=== PATIENT | female | born 1940 | race American Indian/Alaskan Native ===

== ENCOUNTER 2017-04-10 14:58 | Inpatient (IN) | payer MEDICARE ==
--- NOTE | 2017-04-10 15:11 | ED PDOC ---
Lower Extremity Pain/Injury Time Seen by Provider: 04/10/17 15:10 Chief Complaint (Nursing): Lower Extremity Problem/Injury Chief Complaint (Provider): knee pain History Per: Patient Additional Complaint(s): 77-year-old female presents to emergency department with moderate pain to left knee. Patient has had pain for several months and it is progressively worsening. She takes oxycodone daily for pain relief but this does not help. Patient denies recent fall or trauma. She is currently undergoing physical therapy for the knee but this is not helping. Past Medical History Reviewed: Historical Data, Nursing Documentation, Vital Signs Vital Signs: Last Vital Signs Temp 97.8 F 04/10/17 15:00 Pulse 84 04/10/17 15:00 Resp 16 04/10/17 15:00 BP 155/67 H 04/10/17 15:00 Pulse Ox 98 04/10/17 15:00 - Medical History PMH: HTN - Surgical History Other surgeries: hysterectomy, hemorroidectomy - Family History Family History: States: No Known Family Hx - Living Arrangements Living Arrangements: With Family - Social History Current smoker - smoking cessation education provided: No Alcohol: None Drugs: Denies - Home Medications Home Medications: Ambulatory Orders Medication Instructions Recorded Acetaminophen [Non-Aspirin Pain 325 mg PO Q4 PRN 04/10/17 Relief] Diclofenac Epolamine [Flector] 1.3 % TP Q12 04/10/17 Docusate [Colace] 200 mg PO HS 04/10/17 Fentanyl [Duragesic Patch] 12 mcg TD 04/10/17 Ferrous Sulfate [Feosol] 325 mg PO BID 04/10/17 Folic Acid 1 mg PO DAILY 04/10/17 Magnesium Hydroxide [Milk of 30 ml PO DAILY PRN 04/10/17 Magnesia] Methotrexate Sodium [Trexall] 10 mg PO QWK 04/10/17 Methotrexate [Methotrexate] 1 tab PO QWK 04/10/17 Olmesartan/Hydrochlorothiazide 1 tab PO DAILY 04/10/17 [Benicar Hct 25 mg-40 mg] Oxycodone HCl [Roxicodone] 15 mg PO Q4 PRN 04/10/17 Tramadol HCl [Ultram] 50 mg PO Q4 PRN 04/10/17 amLODIPine [Norvasc] 5 mg PO DAILY 04/10/17 - Allergies Allergies/Adverse Reactions: Allergies Allergy/AdvReac Type Severity Reaction Status Date / Time No Known Allergies Allergy Verified 04/10/17 15:06 Wells Criteria for PE - Wells Criteria for Pulmonary Embolism Clinical Signs and Symptoms of DVT: No P.E is #1 Diagnosis, or Equally Likely: No Heart Rate >100: No Immobilization at least 3 days;Surgery previous 4 weeks: No Previous, objectively diagnosed PE or DVT: No Hemoptysis: No Malignancy w/treatment within 6 months, or palliative: No Total Score: 0 Review of Systems ROS Statement: Except As Marked, All Systems Reviewed And Found Negative Constitutional: Negative for: Fever Cardiovascular: Negative for: Chest Pain Respiratory: Negative for: Cough, Shortness of Breath, SOB with Exertion Gastrointestinal: Negative for: Nausea, Vomiting Musculoskeletal: Positive for: Other (left knee pain) Physical Exam - Reviewed Nursing Documentation Reviewed: Yes Vital Signs Reviewed: Yes - Physical Exam Appears: Positive for: Well, Non-toxic, No Acute Distress Skin: Negative for: Rash Eye Exam: Positive for: Normal appearance Cardiovascular/Chest: Positive for: Regular Rate, Rhythm Respiratory: Positive for: Normal Breath Sounds. Negative for: Wheezing, Respiratory Distress Extremity: Positive for: Other (Moderate swelling and tenderness diffusely to left knee with decreased range of motion, no calf swelling or tenderness bilaterally, normal distal sensation to bilateral lower extremities) Neurologic/Psych: Positive for: Alert, Oriented - Laboratory Results Result Diagrams: 04/11/17 05:15 04/11/17 05:15 - ECG Interpretation Of ECG: Normal sinus rhythm 72 bpm with no acute findings, reviewed by PA and ED attending. O2 Sat by Pulse Oximetry: 98 Pulse Ox Interpretation: Normal - Other Rad CXR X-Ray: Interpreted by Me, Viewed By Me X-Ray Interpretation: no acute finding Left knee x-ray X-Ray: Read By Radiologist X-Ray Interpretation: see below CT scan of left knee X-Ray: Read By Radiologist X-Ray Interpretation: see below Medical Decision Making Medical Decision Makin77 year old with persistent pain to left knee Plan: CBC CMP CXR EKG PT/PTT Type and Screen IVF IV zofran IV dilaudid Admit to hospitalist, consult with Dr. Leon and Dr. Castro Hb 8.3, 2 units packed RBC's given, written consent obtained from patient. X-ray left knee: IMPRESSION: Advanced osteoarthritis. No fracture is appreciated. Degenerative lateral subluxation of the tibias appreciable. CT left knee: severe degenerative changes with no fx. Disposition - Clinical Impression Clinical Impression: Inability to ambulate due to knee, Knee pain, Anemia - Patient ED Disposition Is Patient to be Admitted: Yes - Disposition Disposition Time: 17:24 Condition: FAIR - Pt Status Changed To: Hospital Disposition Of: Inpatient - Admit Certification Admit to Inpatient:: After my assessment, the patient will require hospitalization for at least two midnights. This is because of the severity of symptoms shown, intensity of services needed, and/or the medical risk in this patient being treated as an outpatient. - POA Present On Arrival: None Results - Lab Results Lab Results: 04/10/17 04/10/17 04/10/17 16:20 16:20 16:20 WBC 5.4 RBC 2.92 L Hgb 8.3 L Hct 26.4 L MCV 90.3 MCH 28.5 MCHC 31.6 L RDW 19.4 H Plt Count 188 MPV 7.7 Neut % (Auto) 61.9 Lymph % (Auto) 22.1 [place] % (Auto) 13.1 H Eos % (Auto) 2.2 Baso % (Auto) 0.7 Neut # 3.3 Lymph # 1.2 [place] # 0.7 Eos # 0.1 Baso # 0.0 PT 12.5 INR 1.1 APTT 29.9 Sodium 135 Potassium 4.7 Chloride 100 Carbon Dioxide 24 Anion Gap 16 BUN 24 H Creatinine 1.4 H Est GFR ( Amer) 44 Est GFR (Non-Af Amer) 36 Random Glucose 100 Calcium 9.3 Total Bilirubin 0.3 AST 18 ALT 31 Alkaline Phosphatase 74 Total Protein 8.0 Albumin 3.9 Globulin 4.1 H Albumin/Globulin Ratio 1.0 Blood Type Antibody Screen BBK History Checked 04/10/17 16:20 WBC RBC Hgb Hct MCV MCH MCHC RDW Plt Count MPV Neut % (Auto) Lymph % (Auto) [place] % (Auto) Eos % (Auto) Baso % (Auto) Neut # Lymph # [place] # Eos # Baso # PT INR APTT Sodium Potassium Chloride Carbon Dioxide Anion Gap BUN Creatinine Est GFR ( Amer) Est GFR (Non-Af Amer) Random Glucose Calcium Total Bilirubin AST ALT Alkaline Phosphatase Total Protein Albumin Globulin Albumin/Globulin Ratio Blood Type A POSITIVE Antibody Screen Negative BBK History Checked No verified bt
[2017-04-10] MEDS ORDERED: Sodium Chloride 0.9% 1,000 ML IV STA (15:42)
[2017-04-10 16:24] LABS: BASO % 0.7 % (0.0-2.0); EOS # 0.1 K/uL (0.0-0.7); EOS % 2.2 % (0.0-4.0); HEMATOCRIT 26.4 % (34.0-47.0); LYMPH # 1.2 K/uL (1.0-4.3); LYMPH % 22.1 % (20.0-40.0); MEAN CELL VOLUME 90.3 fl (81.0-99.0); MEAN CORPUSCULAR HEMOGLOBIN 28.5 pg (27.0-31.0); MEAN CORPUSCULAR HGB CONC 31.6 g/dL (33.0-37.0); MEAN PLATELET VOLUME 7.7 fl (7.2-11.7); MONO # 0.7 K/uL (0.0-0.8); MONO % 13.1 % (0.0-10.0); NEUT # 3.3 K/uL (1.8-7.0); NEUT % 61.9 % (50.0-75.0); RED CELL DISTRIBUTION WIDTH 19.4 % (11.5-14.5); WHITE BLOOD COUNT 5.4 K/uL (4.8-10.8)
[2017-04-10 16:34] LABS: BILIRUBIN,TOTAL 0.3 mg/dl (0.2-1.3); CALCIUM 9.3 mg/dL (8.4-10.2); POTASSIUM 4.7 MMOL/L (3.6-5.0)
--- NOTE | 2017-04-10 16:55 | RAD ---
HISTORY: clearance COMPARISON: No prior. FINDINGS: LUNGS: No active pulmonary disease. PLEURA: No significant pleural effusion identified, no pneumothorax apparent. CARDIOVASCULAR: Patient rotated toward the right limiting evaluation of the cardiac size which is appears upper limits of normal at least. Aortic ectasis is accentuated. OSSEOUS STRUCTURES: No significant abnormalities. VISUALIZED UPPER ABDOMEN: Elevated left hemidiaphragm daily least in part due to gas distended stomach and the splenic flexure moderately. OTHER FINDINGS: None. IMPRESSION: No acute infiltrate or pleural effusion bilaterally.
[2017-04-10 17:06] LABS: PARTIAL THROMBOPLASTIN TIME 29.9 Seconds (25.6-37.1)
[2017-04-10] MEDS ORDERED: Oxycodone/Acetaminophen 5/325 mg Tab PO PRN (17:38)
--- NOTE | 2017-04-10 17:53 | CP.PCM.HP ---
History of Present Illness - History of Present Illness History of Present Illness: CC: left knee pain - for months acutely but arthritis for years, sent in to ED for transfusion prior to OR 77 yo F pmh sig for HTN, osteoarthritis, and RA, was at [facility] for severe knee pain, transferred to rehab and sent to Hospital for eval of pain and possible surgery kelli. Found to be anemic prior to OR. sent for Transfusion prior to OR. Patient complained of sever pain right and left knees for a while now (years) now both worse. Left though was 10/10 pain until given pain meds in ED. Currently 4-5/10 and is now comfortable. Barely able to walk or put any weight on left knee and now feels she is overcompensating on right knee and that one is also pain full. She clearly has difficulty walking and doing her tasks. She denies chest pain, sob, fever, chills, dysuria, weight loss, cough, nausea, vomiting. She got prbc recently at [place] as well. She is not sure why she is anemic. She did have stool that was negative for fecal occult at rehab ([facility] [place]). Recent UTI: completed cipro from04/06-04/09 PMH: Hypertension CKD Arthritis difficulty walking Anemia Constipation Rheumatoid arthritis PSH: Hysterectomy SH: no smoking no alcohol no drug use FH: no significant inherited diseases Allergies: NKDA PMD: Isabel Diaz @ rehab [facility] [place] Lives Alone: has family through out the [place] no one is close by except friends from restorationist Daughter Dari Estrada - [phone] is point of contact in case she is not able to make her decisions Full code - discussed. Meds: Tylenol prn pain Norvasc 5mg po daily Benicar /HCT 40/25mg po q daily Colace 100mg bid Fentanyl patch 12mcg/hr x 72 hrs Iron sulfate bid flector patch 1.3% q 12 hrs folic acid 1mg daily Methotrexate 12.5mg po q mondays MOM prn Oxycocone 15mg po q4 hrs prn pain tramadol 50mg po q4 prn mod pain Present on Admission - Present on Admission Any Indicators Present on Admission: No History of DVT/PE: No History of Uncontrolled Diabetes: No Urinary Catheter: No Decubitus Ulcer Present: No Review of Systems - Review of Systems All systems: reviewed and no additional remarkable complaints except - Constitutional Constitutional: absent: As Per HPI, Anorexia, Chills, Daytime Sleepiness, Excessive Sweating, Fatigue, Fever, Frequent Falls, Headache, Increased Appetite , Lethargy, Malaise, Night Sweats, Snoring, Sleep Apnea, Weight Gain, Weight Loss, Weakness, Other - EENT Eyes: absent: As Per HPI, Blind Spots, Blurred Vision, Change in Vision, Decreased Night Vision, Diplopia, Discharge, Dry Eye, Exophthalmos, Floaters, Irritation, Itchy Eyes, Loss of Peripheral Vision, Pain, Photophobia, Requires Corrective Lenses, Sees Flashes, Spots in Vision, Tunnel Vision, Other Visual Disturbances, Loss of Vision, Other Ears: absent: As Per HPI, Decreased Hearing, Ear Discharge, Ear Pain, Tinnitus, Abnormal Hearing, Disequilibrium, Dizziness, Other Nose/Mouth/Throat: absent: As Per HPI, Epistaxis, Nasal Congestion, Nasal Discharge, Nasal Obstruction, Nasal Trauma, Nose Pain, Post Nasal Drip, Sinus Pain, Sinus Pressure, Bleeding Gums, Change in Voice, Dental Pain, Dry Mouth, Dysphagia, Halitosis, Hoarsness, Lip Swelling, Mouth Lesions, Mouth Pain, Odynophagia, Sore Throat, Throat Swelling, Tongue Swelling, Facial Pain, Neck Pain, Neck Mass, Other - Breasts Breasts: absent: As Per HPI, Change in Shape, Mass, Pain, Nipple Discharge, Nipple Inversion, Skin Changes, Swelling, Other - Cardiovascular Cardiovascular: absent: As Per HPI, Acrocyanosis, Chest Pain, Chest Pain at Rest , Chest Pain with Activity, Claudication, Diaphoresis, Dyspnea, Dyspnea on Exertion, Edema, Irregular Heart Rhythm, Pain Radiating to Arm/Neck/Jaw, Leg Edema, Leg Ulcers, Lightheadedness, Orthopnea, Palpitations, Paroxysmal Nocturnal Dyspnea, Pedal Edema, Radiating Pain, Rapid Heart Rate, Slow Heart Rate, Syncope, Other - Respiratory Respiratory: absent: As Per HPI, Cough, Dyspnea, Hemoptysis, Dyspnea on Exertion , Wheezing, Snoring, Stridor, Pain on Inspiration, Chest Congestion, Excessive Mucous Production, Change in Mucous Color, Pain with Coughing, Other - Gastrointestinal Gastrointestinal: absent: As Per HPI, Abdominal Pain, Belching, Bloating, Change in Bowel Habits, Change in Stool Character, Coffee Ground Emesis, Constipation, Cramping, Diarrhea, Dyspepsia, Dysphagia, Early Satiety, Excessive Flatus, Fecal Incontinence, Heartburn, Hematemesis, Hematochezia, Loose Stools, Melena, Nausea, Odynophagia, Temesmus, Vomiting, Other - Genitourinary Genitourinary: absent: As Per HPI, Change in Urinary Stream, Difficulty Urinating, Dysuria, Flank Pain, Hematuria, Pyuria, Nocturia, Urinary Incontinence, Urinary Frequency, Urinary Hesitance, Urinary Urgency, Voiding Freq/Small Amts, Freq UTI, Hx Renal/Bladder Calculi, Hx /Renal Surgery, Bladder Distension, Other - Reproductive: Female Reproductive:Female: S/P Hysterectomy. absent: As Per HPI, Amenorrhea, Amenorrhea/ Control, Currently Menstual, Cycle <21 Days, Cycle >35 Days, Cycle Variable, Menses 1-7 Days, Menses >/= 8 Days, Menses Variable, Cycle > 4 Weeks Between, No Menses for 6 Months, Heavy Menses, Light Menses, Normal Menses , Spotting Between Cycles, Menopausal, Post Menopausal, Premenarche, Abnormal Vaginal Bleeding, Dysmenorrhea, Dyspareunia, Genital Lesions, Genital Pruritis, Pelvic Pain, Prolapse Symptoms, Sexual Dysfunction, Vaginal Discharge, Vaginal Dryness, Vaginal Odor, Vaginal Pruritis, Other - Menstruation Menstruation: S/P Hysterectomy, Post Menopausal. absent: As Per HPI, Amenorrhea , Amenorrhea/ Control, Currently Menstual, Cycle <21 Days, Cycle >35 Days, Cycle Variable, Menses 1-7 Days, Menses >/= 8 Days, Menses Variable, Cycle > 4 Weeks Between, No Menses for 6 Months, Heavy Menses, Light Menses, Normal Menses , Spotting Between Cycles, Menopausal, Premenarche, Abnormal Vaginal Bleeding, Dysmenorrhea, Other - Musculoskeletal Musculoskeletal: Deformity, Joint Swelling, Limited Range of Motion - Integumentary Integumentary: absent: As Per HPI, Acne, Alopecia, Bleeding Lesions, Change in Hair, Change in Nails, Change in Pigmentation, Changing Lesions, Dry Skin, Erythema, Furuncle, Hirsutism, Lesions, New Lesions, Non-Healing Lesions, Photosensitivity, Pruritus, Rash, Skin Pain, Skin Ulcer, Sores, Striae, Swelling , Unusual Bruising, Wounds, Jaundice, Other - Neurological Neurological: Abnormal Gait. absent: As Per HPI, Abnormal Hearing, Abnormal Movements, Abnormal Speech, Behavioral Changes, Burning Sensations, Confusion, Convulsions, Disequilibrium, Dizziness, Numbness, Focal Weakness, Frequent Falls , Headaches, Lack of Coordination, Loss of Vision, Memory Loss, Paresthesias, Radicular Pain, Restless Legs, Sensory Deficit, Syncope, Tingling, Tremor, Vertigo, Weakness, Other Visual Disturbances, Other - Psychiatric Psychiatric: absent: As Per HPI, Abnormal Sleep Pattern, Anhedonia, Anxiety, Auditory Hallucinations, Behavioral Changes, Change in Appetite, Change in Libido, Confusion, Depression, Difficulty Concentrating, Hallucinations, Homicidal Ideation, Hopelessness, Irritability, Memory Loss, Mood Swings, Panic Attacks, Paranoia, Suicidal Ideation, Visual Hallucinations, Tactile Hallucinations, Other - Endocrine Endocrine: absent: As Per HPI, Change in Body Appearance, Change in Libido, Cold Intolorance, Deepening of Voice, Excessive Sweating, Fatigue, Flushing, Heat Intolorance, Increase in Ring/Shoe/Hat Size, Palpitations, Polydipsia, Polyphagia, Polyuria, Other - Hematologic/Lymphatic Hematologic: As Per HPI, Other. absent: Easy Bleeding, Easy Bruising, Lymphadenopathy Additional comments: anemia Past Patient History - Infectious Disease Hx of Infectious Diseases: None - Past Social History Alcohol: None Drugs: Denies - CARDIAC Hx Hypertension: Yes - PSYCHIATRIC Hx Substance Use: No - SURGICAL HISTORY Hx Surgeries: Yes Hx Hysterectomy: Yes Other/Comment: Hemorroidectomy. - ANESTHESIA Hx Anesthesia: Yes Hx Anesthesia Reactions: No Meds Allergies/Adverse Reactions: Allergies Allergy/AdvReac Type Severity Reaction Status Date / Time No Known Allergies Allergy Verified 04/10/17 15:06 Physical Exam - Constitutional Appears: Well, No Acute Distress Additional comments: was in pain earlier - given pain meds per ED currently seems comfortable - Head Exam Head Exam: ATRAUMATIC, NORMAL INSPECTION, NORMOCEPHALIC - Eye Exam Eye Exam: EOMI, Normal appearance. absent: Scleral icterus Pupil Exam: NORMAL ACCOMODATION Additional comments: pallor - ENT Exam ENT Exam: Mucous Membranes Moist - Neck Exam Neck exam: Positive for: Normal Inspection - Respiratory Exam Respiratory Exam: Clear to Auscultation Bilateral, NORMAL BREATHING PATTERN. absent: Rales, Rhonchi, Wheezes - Cardiovascular Exam Cardiovascular Exam: REGULAR RHYTHM, +S1, +S2. absent: Systolic Murmur - GI/Abdominal Exam GI & Abdominal Exam: Normal Bowel Sounds, Soft. absent: Tenderness Additional comments: obese - Extremities Exam Extremities exam: Positive for: joint swelling, tenderness Additional comments: decrease rom of left knee pain at left knee pain right knee both knees swollen dec rom right knee - Back Exam Back exam: NORMAL INSPECTION - Neurological Exam Neurological exam: Alert, Oriented x3 - Psychiatric Exam Psychiatric exam: Normal Affect, Normal Mood - Skin Skin Exam: Normal Color Results - Vital Signs Recent Vital Signs: Last Vital Signs Temp 97.8 F 04/10/17 15:00 Pulse 84 04/10/17 15:00 Resp 16 04/10/17 15:00 BP 155/67 H 04/10/17 15:00 Pulse Ox 98 04/10/17 17:42 - Labs Result Diagrams: 04/10/17 16:20 04/10/17 16:20 Labs: Laboratory Results - last 24 hr 04/10/17 04/10/17 04/10/17 16:20 16:20 16:20 WBC 5.4 RBC 2.92 L Hgb 8.3 L Hct 26.4 L MCV 90.3 MCH 28.5 MCHC 31.6 L RDW 19.4 H Plt Count 188 MPV 7.7 Neut % (Auto) 61.9 Lymph % (Auto) 22.1 [place] % (Auto) 13.1 H Eos % (Auto) 2.2 Baso % (Auto) 0.7 Neut # 3.3 Lymph # 1.2 [place] # 0.7 Eos # 0.1 Baso # 0.0 PT INR APTT Sodium 135 Potassium 4.7 Chloride 100 Carbon Dioxide 24 Anion Gap 16 BUN 24 H Creatinine 1.4 H Est GFR ( Amer) 44 Est GFR (Non-Af Amer) 36 Random Glucose 100 Calcium 9.3 Total Bilirubin 0.3 AST 18 ALT 31 Alkaline Phosphatase 74 Total Protein 8.0 Albumin 3.9 Globulin 4.1 H Albumin/Globulin Ratio 1.0 Blood Type A POSITIVE Antibody Screen Negative BBK History Checked No verified bt 04/10/17 16:20 WBC RBC Hgb Hct MCV MCH MCHC RDW Plt Count MPV Neut % (Auto) Lymph % (Auto) [place] % (Auto) Eos % (Auto) Baso % (Auto) Neut # Lymph # [place] # Eos # Baso # PT 12.5 INR 1.1 APTT 29.9 Sodium Potassium Chloride Carbon Dioxide Anion Gap BUN Creatinine Est GFR ( Amer) Est GFR (Non-Af Amer) Random Glucose Calcium Total Bilirubin AST ALT Alkaline Phosphatase Total Protein Albumin Globulin Albumin/Globulin Ratio Blood Type Antibody Screen BBK History Checked - EKG Data EKG Interpreted by: Myself EKG shows normal: Sinus rhythm Assessment & Plan - Assessment and Plan (Free Text) Assessment: 77 yo female PMH of HTN, OsteoArthritis, Rheumatoid Arthritis, difficulty walking and anemia here for preop transfusion prior to OR. 1. Bilateral knee pain though left greater than right 2. difficulty walking due to knee pain 3. Osteoarthritis 4. Rheumatoid arthritis 5. Hypertension 6. Anemia Plan: resume home meds for hypertension EKG read by me: NSR non specific t wave abn, Left axis deviation Cardiac Clearance by Dr Gibson. fall risk plan [address] Noriega UA stat Monitor ckd diet low salt then NPO past midnight omlesartan not avail here thus started on losartan follow labs in am dvt proph tonight hep sc post surgical dvt proph per Dr. Noriega
--- NOTE | 2017-04-10 18:10 | CT ---
EXAM: CT Left Lower Extremity Without Intravenous Contrast, Knee EXAM DATE/TIME: 04/10/2017 5:23 PM CLINICAL HISTORY: 77 years old, female; Pain; Knee; Left; Additional info: Severe left knee pain TECHNIQUE: Axial computed tomography images of the left knee without intravenous contrast. All CT scans at this facility use one or more dose reduction techniques, viz.: automated exposure control; ma/kV adjustment per patient size (including targeted exams where dose is matched to indication; i.e. head); or iterative reconstruction technique. Coronal and sagittal reformatted images were created and reviewed. COMPARISON: There are no prior studies for comparison. FINDINGS: Bones/joints: Bony structures are diffusely osteopenic. There are degenerative changes at the knee. There is narrowing of all joint compartments. Narrowing is greatest in the medial joint compartment. There is subchondral sclerosis greatest in the medial aspect of the distal femur and proximal tibia. There are subchondral cysts greatest in the medial distal femur and proximal tibia. There is less severe narrowing of the patellofemoral joint space. There degenerative osteophytes arising from the femur and tibia. There is a moderately large joint effusion. There are no fractures. There is mild lateral subluxation of the tibia relative to the distal femur. Soft tissues: There is mild edema in superficial soft tissues. There is dystrophic calcification lateral to the distal femoral diametaphysis. IMPRESSION: Severe degenerative change in joint effusion, no fracture Additional findings as described above.
--- NOTE | 2017-04-10 18:48 | RAD ---
PROCEDURE: Left Knee Radiographs. HISTORY: Pain. COMPARISON: None. FINDINGS: BONES: No fracture or destructive bony lesion appreciated. JOINTS: Advanced osteoarthritis manifest by marked joint space narrowing an outside development in all 3 joint compartments. Subchondral cyst formation is appreciated in the medial and lateral femorotibial compartments. The patellofemoral compartment appears to be a least affected though significant osteoarthritis is still identified there. There is a limited lateral degenerative subluxation of the tibia appreciated. JOINT EFFUSION: Mild suprapatellar bursa effusion is suggested. OTHER FINDINGS: None. IMPRESSION: Advanced osteoarthritis. No fracture is appreciated. Degenerative lateral subluxation of the tibias appreciable.
[2017-04-11 06:17] LABS: HEMATOCRIT 27.5 % (34.0-47.0); MEAN CELL VOLUME 88.9 fl (81.0-99.0); MEAN CORPUSCULAR HEMOGLOBIN 29.3 pg (27.0-31.0); MEAN CORPUSCULAR HGB CONC 32.9 g/dL (33.0-37.0); RED CELL DISTRIBUTION WIDTH 17.4 % (11.5-14.5); WHITE BLOOD COUNT 4.5 K/uL (4.8-10.8)
[2017-04-11 06:41] LABS: POTASSIUM 4.3 MMOL/L (3.6-5.0)
--- NOTE | 2017-04-11 08:08 | CARD ---
APPROVED REPORT EKG Measurement Heart [id number] <Conclusion> Normal sinus rhythm Left axis deviation Abnormal ECG
[2017-04-11] MEDS ORDERED: MethylPREDNISolone Depo 40 mg/ml Inj ONE (08:56)
[2017-04-11] MEDS ORDERED: Lidocaine 1% Inj (20ml) ONE (08:56)
[2017-04-11] MEDS ORDERED: ceFAZolin IV 1 gm in Dextrose 2 GM/100 ML BAG IVPB ONE (08:56)
[2017-04-11] MEDS ORDERED: Absorbable Gelatin Sponge Size 100 ONE (08:57)
[2017-04-11] MEDS ORDERED: Bupivacaine 0.5% Inj(30mL) ONE (08:57)
[2017-04-11] MEDS ORDERED: Influenza Vaccine 18yr & older 0.5 ML/45 MCG SYR IM ONE (09:00)
[2017-04-11] MEDS ORDERED: HCTZ/Losartan 12.5/50 Tab PO SCH (09:00)
[2017-04-11] MEDS ORDERED: Pneumococcal 23-Valent Vaccine IM ONE (09:00)
[2017-04-11 09:06] LABS: RBC URINE 1 /hpf (0-3); URINE BACTERIA RARE (<OCC); URINE BILIRUBIN NEGATIVE (NEGATIVE); URINE BLOOD NEGATIVE (NEGATIVE); URINE COLOR STRAW (YELLOW); URINE GLUCOSE (UA) NEG (Normal); URINE KETONE NEGATIVE (NEGATIVE); URINE LEUKOCYTE ESTERASE SMALL Leu/uL (Negative); URINE PROTEIN NEGATIVE (NEGATIVE); URINE UROBILINOGEN 0.2-1.0 mg/dL (0.2-1.0); WBC URINE 1 /hpf (0-5)
--- NOTE | 2017-04-11 09:07 | CP.PCM.CON ---
History of Present Illness - History of Present Illness History of Present Illness: THE PATIENT IS A 77 YEAR OLD FEMALE ADMITTED WITH SEVERE LEFT KNEE PAIN AND WHO WILL UNDERGO A LEFT TKR TODAY BY DR VELEZ. SHE HAS A HISTORY OF RHEUMATOID ARTHRITIS AND HAS HAD BILATERAL KNEE PAIN FOR YEARS, MORE PRONOUNCED OF THE LEFT. SHE ALSO HAS A HISTORY OF HYPERTENSION, CKD AND ANEMIA. CARDIOLOGY WAS ASKED TO SEE HER PRE-OP AND FOLLOW HERE AFTERWARDS IN THE HOSPITAL. SHE DENIES ANY CHEST PAIN HISTORY OR CAD. Past Patient History - Infectious Disease Hx of Infectious Diseases: None - Past Medical History & Family History Past Medical History?: Yes - Past Social History Smoking Status: Never Smoked - CARDIAC Hx Hypertension: Yes - PULMONARY Hx Respiratory Disorders: No - NEUROLOGICAL Hx Neurological Disorder: No - HEENT Hx HEENT Problems: No - RENAL Hx Chronic Kidney Disease: Yes - ENDOCRINE/METABOLIC Hx Endocrine Disorders: No - HEMATOLOGICAL/ONCOLOGICAL Hx Blood Disorders: Yes Hx Anemia: Yes Hx Blood Transfusions: Yes - INTEGUMENTARY Hx Dermatological Problems: No - MUSCULOSKELETAL/RHEUMATOLOGICAL Hx Falls: No Hx Osteoarthritis: Yes Hx Rheumatoid Arthritis: Yes - GENITOURINARY/GYNECOLOGICAL Hx Genitourinary Disorders: No - PSYCHIATRIC Hx Substance Use: No - SURGICAL HISTORY Hx Surgeries: Yes Hx Hysterectomy: Yes Other/Comment: Hemorroidectomy. - ANESTHESIA Hx Anesthesia: Yes Hx Anesthesia Reactions: No Meds Allergies/Adverse Reactions: Allergies Allergy/AdvReac Type Severity Reaction Status Date / Time No Known Allergies Allergy Verified 04/10/17 15:06 - Medications Medications: Current Medications Acetaminophen (Tylenol 325mg Tab) 325 mg PO Q6 PRN PRN Reason: Pain, Mild (1-3) Acetaminophen (Tylenol 325mg Tab) 650 mg PO Q4 PRN PRN Reason: Pain, moderate (4-7) Amlodipine Besylate (Norvasc) 5 mg PO DAILY [facility] Last Admin: 04/11/17 08:31 Dose: Not Given Docusate Sodium (Colace) 100 mg PO BID [facility] Last Admin: 04/11/17 08:31 Dose: Not Given Ferrous Sulfate (Feosol) 325 mg PO DAILY [facility] Last Admin: 04/11/17 08:31 Dose: Not Given Folic Acid (Folic Acid) 1 mg PO DAILY [facility] Last Admin: 04/11/17 08:31 Dose: Not Given HCTZ/Losartan Potassium (Hyzaar 12.5 Mg-50 Mg) 1 tab PO DAILY [facility] Last Admin: 04/11/17 08:31 Dose: Not Given Ibuprofen (Motrin Tab) 400 mg PO Q6H PRN PRN Reason: Pain, Mild (1-3) Oxycodone/Acetaminophen (Percocet 5/325 Mg Tab) 1 tab PO Q4 PRN PRN Reason: Pain, moderate (4-7) Stop: 04/13/17 17:39 Last Admin: 04/11/17 01:36 Dose: 1 tab Tramadol HCl (Ultram) 50 mg PO Q4 PRN PRN Reason: Pain, moderate (4-7) Physical Exam - Respiratory Exam Respiratory Exam: Clear to Auscultation Bilateral - Cardiovascular Exam Cardiovascular Exam: REGULAR RHYTHM, +S1, +S2 - Extremities Exam Extremities exam: Positive for: pedal edema - Additional Findings Additional findings: EKG NSR, LAD CXR NAD H/H 02/16 Results - Vital Signs Recent Vital Signs: Last Vital Signs Temp 98.1 F 04/11/17 07:30 Pulse 70 04/11/17 07:30 Resp 18 04/11/17 07:30 BP 98/62 L 04/11/17 08:31 Pulse Ox 97 04/11/17 07:30 - Labs Result Diagrams: 04/11/17 05:15 04/11/17 05:15 Labs: Laboratory Results - last 24 hr 04/10/17 04/10/17 04/10/17 16:20 16:20 16:20 WBC 5.4 RBC 2.92 L Hgb 8.3 L Hct 26.4 L MCV 90.3 MCH 28.5 MCHC 31.6 L RDW 19.4 H Plt Count 188 MPV 7.7 Neut % (Auto) 61.9 Lymph % (Auto) 22.1 Iron % (Auto) 13.1 H Eos % (Auto) 2.2 Baso % (Auto) 0.7 Neut # 3.3 Lymph # 1.2 Iron # 0.7 Eos # 0.1 Baso # 0.0 PT INR APTT Sodium 135 Potassium 4.7 Chloride 100 Carbon Dioxide 24 Anion Gap 16 BUN 24 H Creatinine 1.4 H Est GFR ( Amer) 44 Est GFR (Non-Af Amer) 36 Random Glucose 100 Calcium 9.3 Total Bilirubin 0.3 AST 18 ALT 31 Alkaline Phosphatase 74 Total Protein 8.0 Albumin 3.9 Globulin 4.1 H Albumin/Globulin Ratio 1.0 Blood Type A POSITIVE Blood Type Confirm Antibody Screen Negative Crossmatch See Detail BBK History Checked No verified bt 04/10/17 04/10/17 04/11/17 16:20 18:51 05:15 WBC 4.5 L RBC 3.09 L Hgb 9.1 L Hct 27.5 L MCV 88.9 MCH 29.3 MCHC 32.9 L RDW 17.4 H Plt Count 168 MPV Neut % (Auto) Lymph % (Auto) Iron % (Auto) Eos % (Auto) Baso % (Auto) Neut # Lymph # Iron # Eos # Baso # PT 12.5 INR 1.1 APTT 29.9 Sodium Potassium Chloride Carbon Dioxide Anion Gap BUN Creatinine Est GFR ( Amer) Est GFR (Non-Af Amer) Random Glucose Calcium Total Bilirubin AST ALT Alkaline Phosphatase Total Protein Albumin Globulin Albumin/Globulin Ratio Blood Type Blood Type Confirm A POSITIVE Antibody Screen Crossmatch BBK History Checked 04/11/17 04/11/17 05:15 05:15 WBC RBC Hgb Hct MCV MCH MCHC RDW Plt Count MPV Neut % (Auto) Lymph % (Auto) Iron % (Auto) Eos % (Auto) Baso % (Auto) Neut # Lymph # Iron # Eos # Baso # PT 12.5 INR 1.1 APTT Sodium 136 Potassium 4.3 Chloride 105 Carbon Dioxide 24 Anion Gap 11 BUN 18 H Creatinine 1.2 Est GFR ( Amer) 53 Est GFR (Non-Af Amer) 44 Random Glucose 93 Calcium 9.0 Total Bilirubin AST ALT Alkaline Phosphatase Total Protein Albumin Globulin Albumin/Globulin Ratio Blood Type Blood Type Confirm Antibody Screen Crossmatch BBK History Checked Assessment & Plan - Assessment and Plan (Free Text) Assessment: RHEUMATOID ARTHRITIS WITH SEVERE LEFT KNEE PAIN HYPERTENSION CKD ANEMIA Plan: THE PATIENT IS CLEAR FOR SURGERY FROM THE CARDIAC VIEWPOINT
[2017-04-11] MEDS ORDERED: Etomidate 20 mg/10ml Inj IV ONE (09:14)
[2017-04-11] MEDS ORDERED: Succinylcholine 200 mg/10 ml Inj IV ONE (09:18)
[2017-04-11] MEDS ORDERED: Sevoflurane - Inhalation Anesthetic Liq (250 ml) ONE (09:24)
[2017-04-11] MEDS ORDERED: Lidocaine 2% MPF (5 ml) Inj ONE (10:04)
[2017-04-11] MEDS ORDERED: Bupivacaine HCl/Epi 0.5% 1:20000 30 ML SOL IJ ONE ×2 (10:04→15:28)
[2017-04-11] MEDS ORDERED: ePHEDrine 50 mg/ml Inj ONE (10:09)
--- NOTE | 2017-04-11 10:20 | CARD ---
APPROVED REPORT EXAM: Two-dimensional and M-mode echocardiogram with Doppler and color Doppler. Other Information Quality : GoodRhythm : NSR INDICATION Pre-Op 2D DIMENSIONS IVSd0.82 (0.7-1.1cm)LVDd4.70 (3.9-5.9cm) LVOT Diameter2.22 (1.8-2.4cm)PWd0.68 (0.7-1.1cm) IVSs0.98 (0.8-1.2cm)LVDs3.82 (2.5-4.0cm) FS (%) 18.7 %PWs0.77 (0.8-1.2cm) M-Mode DIMENSIONS Left Atrium (MM)3.59 (2.5-4.0cm)IVSd0.79 (0.7-1.1cm) Aortic Root3.38 (2.2-3.7cm)LVDd5.71 (4.0-5.6cm) Aortic Cusp Exc.1.91 (1.5-2.0cm)PWd1.00 (0.7-1.1cm) IVSs0.97 cmFS (%) 26 % LVDs4.21 (2.0-3.8cm)PWs1.26 cm Mitral Valve MV E Hpwsypai94.1cm/sMV DECEL [id number] A Qatfcdke867.8cm/s MV IIE17ffW/A ratio0.8MVA (PHT)3.52cm2 TDI Lateral E' Peak V14.50cm/sMedial E' Peak V6.68cm/sE/Lateral E'5.5 E/Medial E'12.0 Pulmonary Valve PV Peak Mkhopahi05.1cm/s Tricuspid Valve TR Peak Ebxqpwff338kd/sRAP [id number] Peak Gr.28mmHg UVAR37pkBv LEFT VENTRICLE The left ventricle is normal size. There is normal left ventricular wall thickness. Left ventricle systolic function is normal. The Ejection Fraction is 55-60%. There is normal LV segmental wall motion. Transmitral Doppler flow pattern is Grade I-abnormal relaxation pattern. RIGHT VENTRICLE The right ventricle is normal size. There is normal right ventricular wall thickness. The right ventricular systolic function is normal. ATRIA The left atrium size is normal. The right atrium size is normal. AORTIC VALVE The aortic valve is normal in structure. No aortic regurgitation is present. There is no aortic valvular stenosis. MITRAL VALVE The mitral valve is normal in structure. There is no evidence of mitral valve prolapse. There is no mitral valve stenosis. There is no mitral valve regurgitation noted. TRICUSPID VALVE The tricuspid valve is normal in structure. There is mild tricuspid regurgitation. Right ventricular systolic pressure is estimated at 38 mmHg. There is mild pulmonary hypertension. PULMONIC VALVE The pulmonary valve is normal in structure. There is no pulmonic valvular regurgitation. GREAT VESSELS The aortic root is normal in size. The IVC is dilated. The IVC collapses <50% with inspiration. PERICARDIAL EFFUSION The pericardium appears normal. <Conclusion> The left ventricle is normal size. There is normal left ventricular wall thickness. There is normal LV segmental wall motion. Left ventricle systolic function is normal. The Ejection Fraction is 55-60%. Transmitral Doppler flow pattern is Grade I-abnormal relaxation pattern. There is mild tricuspid regurgitation. There is mild pulmonary hypertension. The IVC is dilated. The IVC collapses <50% with inspiration.
[2017-04-11] MEDS ORDERED: Rocuronium 10 mg/ml (5 ml) ONE (10:41)
[2017-04-11] MEDS ORDERED: Phenylephrine 10 mg/ml Inj ONE (10:48)
[2017-04-11] MEDS ORDERED: Lactated Ringer's 1,000 ML IV ONE ×2 (11:05→12:30)
--- NOTE | 2017-04-11 14:05 | CP.PCM.PN ---
Subjective - Date & Time of Evaluation Date of Evaluation: 04/11/17 Time of Evaluation: 07:00 - Subjective Subjective: Ortho f/u Dr. Leon 77F with severe left knee DJD failed conservative mgmt and elected for TKR. Patient with chronic anemia, needed preoperative PRBC transfusion. Objective - Vital Signs/Intake and Output Vital Signs (last 24 hours): Temp Pulse Resp BP Pulse Ox 98.1 F 70 18 98/62 L 98 04/11/17 07:30 04/11/17 07:30 04/11/17 07:30 04/11/17 08:31 04/11/17 12:47 - Medications Medications: Current Medications Acetaminophen (Tylenol 325mg Tab) 325 mg PO Q6 PRN PRN Reason: Pain, Mild (1-3) Acetaminophen (Tylenol 325mg Tab) 650 mg PO Q4 PRN PRN Reason: Pain, moderate (4-7) Amlodipine Besylate (Norvasc) 5 mg PO DAILY [facility] Last Admin: 04/11/17 08:31 Dose: Not Given Docusate Sodium (Colace) 100 mg PO BID [facility] Last Admin: 04/11/17 08:31 Dose: Not Given Ferrous Sulfate (Feosol) 325 mg PO DAILY [facility] Last Admin: 04/11/17 08:31 Dose: Not Given Folic Acid (Folic Acid) 1 mg PO DAILY [facility] Last Admin: 04/11/17 08:31 Dose: Not Given HCTZ/Losartan Potassium (Hyzaar 12.5 Mg-50 Mg) 1 tab PO DAILY [facility] Last Admin: 04/11/17 08:31 Dose: Not Given Ibuprofen (Motrin Tab) 400 mg PO Q6H PRN PRN Reason: Pain, Mild (1-3) Oxycodone/Acetaminophen (Percocet 5/325 Mg Tab) 1 tab PO Q4 PRN PRN Reason: Pain, moderate (4-7) Stop: 04/13/17 17:39 Last Admin: 04/11/17 01:36 Dose: 1 tab Tramadol HCl (Ultram) 50 mg PO Q4 PRN PRN Reason: Pain, moderate (4-7) - Labs Labs: 04/11/17 05:15 04/11/17 05:15 PT 12.5 Seconds (9.8-13.1) 04/11/17 05:15 INR 1.1 (0.9-1.2) 04/11/17 05:15 APTT 29.9 Seconds (25.6-37.1) 04/10/17 16:20 - Extremities Exam Additional comments: LLE: +ROM ankle/toes, sensation itnact, calves soft NT neg homans +DP/PT pulses Assessment and Plan (1) Primary osteoarthritis of left knee Assessment & Plan: s/p 2 u pRBC T&C 2 units cardiology clearance appreciated NPO for OR for total knee replacement, preoperative transfusion indicated per Dr. Leon due to expected blood loss from procedure pt with neg stool occult blood in NH per chart d/w Dr. Leon, agrees with above Status: Acute Radiology Interpretation - Mailing Section Clerk Mailing Section Clerk:: Radiologist - Radiology Interpretation #2 Interpretation: Patient Name / ID : LI ANNE / [id number] Exam Date : 04/10/2017 17:36:27 ( Approved ) Study Comment : Sex / Age : F / 77Y Creator : Gus Mclaughlin MD Dictator : Gus Mclaughlin MD Bridal Gown Fitter : Classroom Paraprofessional : Gus Mclaughlin MD Approver2 : Report Date : 04/10/2017 18:46:41 My Comment : PROCEDURE: Left Knee Radiographs. HISTORY: Pain. COMPARISON: None. FINDINGS: BONES: No fracture or destructive bony lesion appreciated. JOINTS: Advanced osteoarthritis manifest by marked joint space narrowing an outside development in all 3 joint compartments. Subchondral cyst formation is appreciated in the medial and lateral femorotibial compartments. The patellofemoral compartment appears to be a least affected though significant osteoarthritis is still identified there. There is a limited lateral degenerative subluxation of the tibia appreciated. JOINT EFFUSION: Mild suprapatellar bursa effusion is suggested. OTHER FINDINGS: None. IMPRESSION: Advanced osteoarthritis. No fracture is appreciated. Degenerative lateral subluxation of the tibias appreciable.
[2017-04-11] MEDS ORDERED: Sodium Chloride 0.9% 1,000 ML IV ONE ×3 (14:20→17:35)
--- NOTE | 2017-04-11 14:32 | PCM.ANESB3 ---
Femoral Nerve Block - Femoral Nerve Block Date of Procedure: 04/11/17 Anesthesiologist: Teodoro Haynes Pre-Procedure Diagnosis: Osteo-arthritis,left Post-Procedure Diagnosis: Osteo-arthritis,left Procedure Performed: Femoral Nerve Block Left - Procedure Femoral Nerve Block: The procedure was explained to the patient that it is for the post-operative pain management. Consent was obtained after a thorough discussion with the patient regarding the benefits and possible complications of local anesthetic block of the femoral nerve at the inguinal crease area. The patient was brought to the operating room and standard monitors were applied. Time-out was held with the circulating nurse to confirm the correct surgery and the appropriate block. After applying oxygen by nasal cannula and administering general anesthesia patient was placed in supine position with fully extended lower extremities and the groin exposed. The femoral artery was then carefully palpated. The ultrasound transducer was then applied to this area in the transverse plane and the femoral nerve was visualized lateral to the femoral artery and underneath the fascia iliaca. After thorough identification, the inguinal crease area was prepped with Betadine solution three times and 1 % Lidocaine was injected subcutaneously for topical anesthesia. At this point, a #22 gauge Stimuplex 2-inch needle was inserted immediately lateral to the femoral artery pulse at the inguinal crease and advanced perpendicularly. The needle was inserted to the ultrasound transducer in-plane towards the femoral nerve in a lyvdbnu-mo-[id number] direction. Needle advancement was performed carefully under direct ultrasound visualization. Nerve stimulator was used and twitch of the quadriceps muscle was obtained at current of _.4____ MA. After negative aspiration, _10____cc of __2___% ___lidocaine _was injected and this was followed with _10 cc of _.5 % ___ bupivacaine . Under ultrasound guidance the local anesthetics were observed spreading below fascia iliaca and around the femoral nerve. The needle was removed intact and sterile dressing was applied. The patient had stable vital signs, was conscious and in no apparent distress. The patient tolerated the femoral nerve block well with stable vital signs and was prepared for subsequent surgery.
[2017-04-11] MEDS ORDERED: HYDROmorphone 0.5 mg/0.5 ml ISec IVP PRN (14:42)
--- NOTE | 2017-04-11 14:45 | PCM.ANESB2 ---
Popliteal Nerve Block - Popliteal Nerve Block Date of Procedure: 04/11/17 Anesthesiologist: Teodoro Haynes M.D. Pre-Procedure Diagnosis: Osteoarthritis, left knee Post-Procedure Diagnosis: Osteo-arthritis,left knee Procedure Performed: Popliteal Nerve Block Left - Procedure Popliteal Nerve Block: This procedure was explained to the patient that it is for post-operative pain management. Consent was obtained after a thorough discussion with the patient regarding the benefits and possible complications of local anesthetic block of the sciatic nerve at the popliteal level. The patient was brought to the operating room and standard monitors are applied. Time-out was held with the circulating nurse to confirm the correct surgery and the appropriate block. After applying oxygen by nasal cannula and administering general anesthesia , patient's operative leg was gently raised and supported and the groove in between the biceps femoris and vastus lateralis muscles was carefully palpated. The skin approximately 8cm above the popliteal crease was then marked. The ultrasound transducer was then applied to the posterior thigh approximately 8cm above the popliteal crease in the transverse plane and the sciatic nerve before its division was visualized lateral to the popliteal artery and in between the bicep femoris and semimembranosus/semitendinosus muscles. After identification, the lateral portion of the thigh was prepped with Betadine solution three times and Lidocaine 1% was injected subcutaneously for topical anesthesia. At this point, a # 21 gauge Stimuplex insulated 4 inch needle was inserted into pre-marked area and advanced in a perpendicular direction. The needle was inserted above the ultrasound transducer in-plane towards the sciatic nerve in a odwjcif-mr-qimcxw direction. Needle advancement was performed carefully under direct ultrasound visualization. Nerve stimulator was used and dorsiflexion of the _left____ foot was elicited at a current of __.4___ MA. After repeated negative aspiration, __10___cc of _.5____ % _bupivacaine was injected surrounding sciatic nerve . The needle was removed intact and sterile dressing was applied. The patient tolerated the popliteal nerve block well with stable vital signs and was subsequently prepared for the surgery.
[2017-04-11] MEDS ORDERED: Oxycodone/Acetaminophen 5/325 mg Tab PO PRN (14:48)
--- NOTE | 2017-04-11 14:56 | PCM.SURG1 ---
Surgeon's Initial Post Op Note - Surgeon's Notes Surgeon: Edward Gifts Officer: KIRA Gonsalez/ 2nd assist Vaibhav Parry Type of Anesthesia: General Endo Anesthesia Administered By: Dr Teodoro Haynes Pre-Operative Diagnosis: Tricompartmental O/A L Knee. tricopartmental synovitis Operative Findings: severe tricompartmental osteoarthritis. severe tricompartmental synovitis. posterior capsular contracture. lateral patella contracture Post-Operative Diagnosis: as above Operation Performed: L TKR. posterior capsular release. lateral patella release. anterior and posterior synovectomy. computer navigation Specimen/Specimens Removed: synovium/cartilage/bone Estimated Blood Loss: EBL {In ML}: 100 Blood Products Given: N/A Drains Used: No Drains Post-Op Condition: Good Date of Surgery/Procedure: 04/11/17 Time of Surgery/Procedure: 11:25 (time in room/aneatsheisa [id number] timke 10: 03)
[2017-04-11] MEDS: HYDROmorphone 0.5 mg/0.5 ml ISec IVP PRN ×3 (15:06→15:50)
--- NOTE | 2017-04-11 15:59 | RAD ---
PROCEDURE: Left Knee Radiographs. Left knee dated 04/11/2017 AP and views of the and cross-table lateral view of the left knee performed. HISTORY: Status post TKA COMPARISON: Comparison made with prior study 04/10/2017 FINDINGS: The current study reveals interval left total knee arthroplasty. Hardware appears intact. There is satisfactory alignment. . Expected surrounding postoperative changes within the soft tissues including swelling/ edema subcutaneous air and in situ drainage catheters. Overlying skin closure vinicio are also present. IMPRESSION: Status post left total knee arthroplasty. Satisfactory alignment. Surrounding expected/postoperative changes
--- NOTE | 2017-04-11 16:18 | PCM.ANES ---
Anesthesia Emergent Intubation - Diagnosis Working Diagnosis:: Status post left total knee replacement
--- NOTE | 2017-04-11 16:27 | CP.PCM.PN ---
Subjective - Date & Time of Evaluation Date of Evaluation: 04/11/17 Time of Evaluation: 16:00 - Subjective Subjective: Patient was complaining of pain at the lateral side of the operative site, the femoral lateral cutaneus nerve was block under ultrasound guidance using 20ml. .25% bupivacane. Patint has stable vital signs. Objective - Vital Signs/Intake and Output Vital Signs (last 24 hours): Temp Pulse Resp BP Pulse Ox 98.1 F 70 18 98/62 L 98 04/11/17 07:30 04/11/17 07:30 04/11/17 07:30 04/11/17 08:31 04/11/17 12:47 Intake and Output: 04/11/17 04/11/17 06:59 18:59 Intake Total 2700 Balance 2700 - Medications Medications: Current Medications Acetaminophen (Tylenol 325mg Tab) 325 mg PO Q6 PRN PRN Reason: Pain, Mild (1-3) Acetaminophen (Tylenol 325mg Tab) 650 mg PO Q4 PRN PRN Reason: Pain, moderate (4-7) Amlodipine Besylate (Norvasc) 5 mg PO DAILY [facility] Last Admin: 04/11/17 08:31 Dose: Not Given Aspirin (Ecotrin) 81 mg PO BID [facility] Docusate Sodium (Colace) 100 mg PO BID [facility] Last Admin: 04/11/17 08:31 Dose: Not Given Ferrous Sulfate (Feosol) 325 mg PO DAILY [facility] Last Admin: 04/11/17 08:31 Dose: Not Given Folic Acid (Folic Acid) 1 mg PO DAILY [facility] Last Admin: 04/11/17 08:31 Dose: Not Given HCTZ/Losartan Potassium (Hyzaar 12.5 Mg-50 Mg) 1 tab PO DAILY [facility] Last Admin: 04/11/17 08:31 Dose: Not Given Hydromorphone HCl (Dilaudid) 0.5 mg IVP Q15M PRN PRN Reason: Pain, moderate (4-7) Stop: 04/12/17 14:25 Hydromorphone HCl (Dilaudid) 0.5 mg IVP Q4 PRN PRN Reason: Pain, severe (8-10) Sodium Chloride (Sodium Chloride 0.9%) 1,000 mls @ 100 mls/hr IV .Q10H [facility] Cefazolin Sodium/Dextrose (Ancef Iv 2 Gm Duplex) 2 gm in 50 mls @ 50 mls/hr IVPB Q8 RASHAD PRN Reason: Protocol Stop: 04/12/17 01:59 Ibuprofen (Motrin Tab) 400 mg PO Q6H PRN PRN Reason: Pain, Mild (1-3) Oxycodone/Acetaminophen (Percocet 5/325 Mg Tab) 2 tab PO Q4 PRN PRN Reason: Pain, moderate (4-7) Stop: 04/14/17 14:43 Oxycodone/Acetaminophen (Percocet 5/325 Mg Tab) 1 tab PO Q4 PRN PRN Reason: Pain, Mild (1-3) Stop: 04/13/17 17:39 Tramadol HCl (Ultram) 50 mg PO Q4 PRN PRN Reason: Pain, moderate (4-7) - Labs Labs: 04/11/17 05:15 04/11/17 05:15 PT 12.5 Seconds (9.8-13.1) 04/11/17 05:15 INR 1.1 (0.9-1.2) 04/11/17 05:15 APTT 29.9 Seconds (25.6-37.1) 04/10/17 16:20
--- NOTE | 2017-04-11 17:21 | CP.PCM.PN ---
Subjective - Date & Time of Evaluation Date of Evaluation: 04/11/17 Time of Evaluation: 17:15 - Subjective Subjective: Pt seen in PACU post op- s/p Left TKR Pt doing well, she is awake , alert some post op pain thirsty and asking for cold water denies CP no SOB no fever Pt has a Hemovac inplace with minimal blood Objective - Vital Signs/Intake and Output Vital Signs (last 24 hours): Temp Pulse Resp BP Pulse Ox 95.8 F L 95 H 17 134/90 100 04/11/17 14:20 04/11/17 14:20 04/11/17 14:20 04/11/17 14:20 04/11/17 14:20 Intake and Output: 04/11/17 04/11/17 06:59 18:59 Intake Total 2700 Balance 2700 - Medications Medications: Current Medications Acetaminophen (Tylenol 325mg Tab) 325 mg PO Q6 PRN PRN Reason: Pain, Mild (1-3) Acetaminophen (Tylenol 325mg Tab) 650 mg PO Q4 PRN PRN Reason: Pain, moderate (4-7) Amlodipine Besylate (Norvasc) 5 mg PO DAILY [facility] Last Admin: 04/11/17 08:31 Dose: Not Given Aspirin (Ecotrin) 81 mg PO BID [facility] Docusate Sodium (Colace) 100 mg PO BID [facility] Last Admin: 04/11/17 08:31 Dose: Not Given Ferrous Sulfate (Feosol) 325 mg PO DAILY [facility] Last Admin: 04/11/17 08:31 Dose: Not Given Folic Acid (Folic Acid) 1 mg PO DAILY [facility] Last Admin: 04/11/17 08:31 Dose: Not Given HCTZ/Losartan Potassium (Hyzaar 12.5 Mg-50 Mg) 1 tab PO DAILY [facility] Last Admin: 04/11/17 08:31 Dose: Not Given Hydromorphone HCl (Dilaudid) 0.5 mg IVP Q15M PRN PRN Reason: Pain, moderate (4-7) Stop: 04/12/17 14:25 Hydromorphone HCl (Dilaudid) 0.5 mg IVP Q4 PRN PRN Reason: Pain, severe (8-10) Hydromorphone HCl (Dilaudid 0.2 Mg/Ml Dowel Maker) 0 mg IV PRN PRN; Protocol PRN Reason: Pain, moderate (4-7) Sodium Chloride (Sodium Chloride 0.9%) 1,000 mls @ 100 mls/hr IV .Q10H RASHAD Cefazolin Sodium/Dextrose (Ancef Iv 2 Gm Duplex) 2 gm in 50 mls @ 50 mls/hr IVPB Q8 RASHAD PRN Reason: Protocol Stop: 04/12/17 01:59 Ibuprofen (Motrin Tab) 400 mg PO Q6H PRN PRN Reason: Pain, Mild (1-3) Oxycodone/Acetaminophen (Percocet 5/325 Mg Tab) 2 tab PO Q4 PRN PRN Reason: Pain, moderate (4-7) Stop: 04/14/17 14:43 Oxycodone/Acetaminophen (Percocet 5/325 Mg Tab) 1 tab PO Q4 PRN PRN Reason: Pain, Mild (1-3) Stop: 04/13/17 17:39 Tramadol HCl (Ultram) 50 mg PO Q4 PRN PRN Reason: Pain, moderate (4-7) - Labs Labs: 04/11/17 05:15 04/11/17 05:15 PT 12.5 Seconds (9.8-13.1) 04/11/17 05:15 INR 1.1 (0.9-1.2) 04/11/17 05:15 APTT 29.9 Seconds (25.6-37.1) 04/10/17 16:20 - Constitutional Appears: Non-toxic, No Acute Distress - Head Exam Head Exam: NORMAL INSPECTION, NORMOCEPHALIC - Eye Exam Eye Exam: EOMI, Normal appearance Pupil Exam: NORMAL ACCOMODATION - ENT Exam ENT Exam: Mucous Membranes Dry, Normal External Ear Exam - Neck Exam Neck Exam: Full ROM. absent: Meningismus - Respiratory Exam Respiratory Exam: NORMAL BREATHING PATTERN. absent: Wheezes, Respiratory Distress - Cardiovascular Exam Cardiovascular Exam: REGULAR RHYTHM, +S1, +S2 - GI/Abdominal Exam GI & Abdominal Exam: Soft, Normal Bowel Sounds. absent: Tenderness - Extremities Exam Extremities Exam: Normal Capillary Refill (Left lower extremity with dressing, Hemovac in place) - Back Exam Back Exam: absent: CVA tenderness (L), CVA tenderness (R) - Neurological Exam Neurological Exam: Awake, Oriented x3 - Psychiatric Exam Psychiatric exam: Flat Affect - Skin Skin Exam: Dry, Normal Color, Warm Assessment and Plan (1) Primary osteoarthritis of left knee Status: Chronic (2) Rheumatoid arthritis Status: Chronic (3) Status post total knee replacement, left Status: Acute (4) Anemia Status: Chronic (5) HTN (hypertension) Status: Chronic (6) DVT prophylaxis Status: Acute - Assessment and Plan (Free Text) Assessment: 77 y/o lady with hx of OA, RA, HTN, presented in the ED because of severe left knee pain. Ortho consulted. CT of the knee showed severe OA. Noted to be anemic 8.1 - hx of chronic anemia - transfused 2 units PRBC pre op . Pt underwent Left TKR. (1) Primary osteoarthritis of left knee Status: Chronic Ortho consulted - DR Leon s/p Left TKR Pain mgt PT/OT consult DVT proph Received Ancef , will give 2 more doses Incentive spirometry (2) Rheumatoid arthritis Status: Chronic as (3) Status post total knee replacement, left Status: Acute as above (1) (4) Anemia, chronic Status: Chronic transfused 2 units pre op monitor CBC (5) HTN (hypertension) Status: Chronic cont Norvasc Hold HCTZ for now (6) DVT prophylaxis Status: Acute ASA 81 mg bid
[2017-04-11] MEDS: Sodium Chloride 0.9% 1,000 ML IV SCH (18:24)
[2017-04-11] MEDS: ceFAZolin IV 2 gm in Dextrose 2 GM/50 ML BAG IVPB SCH (18:28)
[2017-04-11] MEDS ORDERED: Sodium Chloride 0.9% 250 ML IV SCH (21:45)
--- NOTE | 2017-04-12 00:09 | PCM.RRT ---
MOTORCYCLE DESIGNER Nurse Assessment - Situation MOTORCYCLE DESIGNER Responder Arrival Time: 11:30 Location: 4th floor Room Number: 401/1 MOTORCYCLE DESIGNER Reason for Call: Respiratory Distress MOTORCYCLE DESIGNER Called By: RN - IV IV Inserted during MOTORCYCLE DESIGNER?: No - Respiratory Oxygen Delivery Method: Nasal Cannula Received Nebulizer Treatments: No Was the Patient Ventilated with Bag/Mask 100% O2?: No Secretions Suctioned?: No Was the Patient Intubated?: No I.Reason for MOTORCYCLE DESIGNER - A) Acute Change in Patient: (Select all that apply): Staff member or family is worried about patient (SOB ) Subjective: MOTORCYCLE DESIGNER was called for 77 y/o F, s/p left TKR, with PMH of HTN, CKD, Osteoarthritis and RA due to SOB and irregular breathing pattern. Upon arrival, patient was AAO and NAD. Stable VS: BP 116/69, O2 sat 94 % on 2 L NC. Patient denies any palpitations, chest pain, dizziness or breathing difficulty. EKG and CXR ordered , EKG shows Sinus Tachy (no acute change from previous EKG), will follow up CXR. Rec': Consider PO Lasix. MOTORCYCLE DESIGNER was ended and patient remains stable. Case discussed with Dr. Wiggins PGY2 and Dr. Pan --- Alexy Palmer, PGY-1 - Neurological Status (Select all that apply): Alert, Responsive, Oriented, Follows Commands - Respiratory Oxygen Delivery Method: Nasal Cannula @L/min (2L) - Constitutional Appears: Non-toxic, No Acute Distress - Head Head Exam: ATRAUMATIC, NORMAL INSPECTION, NORMOCEPHALIC - Eyes Eye Exam: Normal appearance - Respiratory Exam Respiratory Exam: Clear to Ausculation Bilateral - Cardiovascular Exam Cardiovascular Exam: REGULAR RHYTHM - GI/Abdominal Exam GI & Abdominal Exam: Soft - Neurological Exam Neurological Exam: Alert, Awake, Oriented x3 - Extremities Exam Additional comments: LLE in brace s/p surgery, drain with some bloody drainage
[2017-04-12] MEDS: Oxycodone/Acetaminophen 5/325 mg Tab PO PRN (00:23)
[2017-04-12 00:26] LABS: HEMATOCRIT 29.6 % (34.0-47.0); MEAN CELL VOLUME 89.7 fl (81.0-99.0); MEAN CORPUSCULAR HEMOGLOBIN 29.5 pg (27.0-31.0); MEAN CORPUSCULAR HGB CONC 32.8 g/dL (33.0-37.0); RED CELL DISTRIBUTION WIDTH 16.9 % (11.5-14.5); WHITE BLOOD COUNT 10.2 K/uL (4.8-10.8)
[2017-04-12] MEDS: Sodium Chloride 0.9% 1,000 ML IV SCH ×3 (01:08→21:38)
[2017-04-12] MEDS: ceFAZolin IV 2 gm in Dextrose 2 GM/50 ML BAG IVPB SCH (01:08)
[2017-04-12 06:12] LABS: HEMATOCRIT 28.5 % (34.0-47.0); MEAN CELL VOLUME 89.6 fl (81.0-99.0); MEAN CORPUSCULAR HEMOGLOBIN 29.8 pg (27.0-31.0); MEAN CORPUSCULAR HGB CONC 33.2 g/dL (33.0-37.0); WHITE BLOOD COUNT 10.8 K/uL (4.8-10.8)
[2017-04-12 06:21] LABS: CALCIUM 8.2 mg/dL (8.4-10.2); POTASSIUM 4.3 MMOL/L (3.6-5.0)
--- NOTE | 2017-04-12 07:50 | CP.PCM.PN ---
Subjective - Date & Time of Evaluation Date of Evaluation: 04/12/17 Time of Evaluation: 07:48 - Subjective Subjective: Patient states she is in a lot of pain in her knee. She is asking for pain medication and is in obvious physical discomfort. PROCESS CONTROL OPERATOR noted. Objective - Vital Signs/Intake and Output Vital Signs (last 24 hours): Temp Pulse Resp BP Pulse Ox 99.8 F H 97 H 20 102/68 100 04/12/17 05:00 04/12/17 05:00 04/12/17 05:00 04/12/17 05:00 04/12/17 05:00 Intake and Output: 04/12/17 04/12/17 06:59 18:59 Intake Total 990 Output Total 550 Balance 440 - Medications Medications: Current Medications Acetaminophen (Tylenol 325mg Tab) 325 mg PO Q6 PRN PRN Reason: Pain, Mild (1-3) Acetaminophen (Tylenol 325mg Tab) 650 mg PO Q4 PRN PRN Reason: Pain, moderate (4-7) Last Admin: 04/11/17 19:16 Dose: 650 mg Amlodipine Besylate (Norvasc) 5 mg PO DAILY [facility] Last Admin: 04/11/17 08:31 Dose: Not Given Aspirin (Ecotrin) 81 mg PO BID [facility] Docusate Sodium (Colace) 100 mg PO BID [facility] Last Admin: 04/11/17 18:35 Dose: 100 mg Ferrous Sulfate (Feosol) 325 mg PO DAILY [facility] Last Admin: 04/11/17 08:31 Dose: Not Given Folic Acid (Folic Acid) 1 mg PO DAILY [facility] Last Admin: 04/11/17 08:31 Dose: Not Given Hydromorphone HCl (Dilaudid 0.2 Mg/Ml Clothes Designer) 0 mg IV PRN PRN; Protocol PRN Reason: Pain, moderate (4-7) Hydromorphone HCl (Dilaudid) 0.5 mg IVP Q15M PRN PRN Reason: Pain, moderate (4-7) Stop: 04/12/17 14:25 Hydromorphone HCl (Dilaudid) 0.5 mg IVP Q4 PRN PRN Reason: Pain, severe (8-10) Last Admin: 04/12/17 05:02 Dose: 0.5 mg Sodium Chloride (Sodium Chloride 0.9%) 1,000 mls @ 100 mls/hr IV .Q10H RASHAD Last Admin: 04/12/17 01:08 Dose: 100 mls/hr Ibuprofen (Motrin Tab) 400 mg PO Q6H PRN PRN Reason: Pain, Mild (1-3) Oxycodone/Acetaminophen (Percocet 5/325 Mg Tab) 2 tab PO Q4 PRN PRN Reason: Pain, moderate (4-7) Stop: 04/14/17 14:43 Last Admin: 04/12/17 00:23 Dose: 2 tab Oxycodone/Acetaminophen (Percocet 5/325 Mg Tab) 1 tab PO Q4 PRN PRN Reason: Pain, Mild (1-3) Stop: 04/13/17 17:39 Tramadol HCl (Ultram) 50 mg PO Q4 PRN PRN Reason: Pain, moderate (4-7) - Labs Labs: 04/12/17 05:00 04/12/17 05:00 PT 12.5 Seconds (9.8-13.1) 04/11/17 05:15 INR 1.1 (0.9-1.2) 04/11/17 05:15 APTT 29.9 Seconds (25.6-37.1) 04/10/17 16:20 - Constitutional Appears: In Acute Distress - Extremities Exam Additional comments: LLE: +ROM toes/ankle DF/PF, sensation intact, +DP/PT pulses calves soft NT neg homans. Assessment and Plan (1) Primary osteoarthritis of left knee Assessment & Plan: POD#1 s/p left TKR -hemovac 250cc overnight -one dose toradol ordered -PT/OT -VTE proph with ASA per Dr. Leon -CPM -events noted -d/c planning -d/w Dr. Leon agrees with above Status: Chronic
--- NOTE | 2017-04-12 08:23 | CARD ---
APPROVED REPORT EKG Measurement Heart [id number] [id number] <Conclusion> Sinus tachycardia Left axis deviation Possible Lateral infarct, age undetermined Abnormal ECG
--- NOTE | 2017-04-12 10:06 | RAD ---
PROCEDURE: CHEST RADIOGRAPH, 1 VIEW HISTORY: SOB COMPARISON: Chest radiograph dated 04/10/2017. . FINDINGS: LUNGS: Clear. PLEURA: Stable elevation of the left hemidiaphragm. No pneumothorax or pleural fluid seen. CARDIOVASCULAR: Normal. OSSEOUS STRUCTURES: No significant abnormalities. VISUALIZED UPPER ABDOMEN: Normal. OTHER FINDINGS: None. IMPRESSION: No active disease.
--- NOTE | 2017-04-12 11:25 | CP.PCM.PN ---
Subjective - Date & Time of Evaluation Date of Evaluation: 04/12/17 Time of Evaluation: 11:20 - Subjective Subjective: PATIENT HAD SOB LAST NIGHT AND LEHR LOADER CALLED FOR SOB AND SHE WAS NOT IN ANY ACUTE DISTRESS WHEN LEHR LOADER ARRIVED BUT TRANSFERRED TO PATIENT STATED SHE THINKS SHE WAS SOB FROM BOTH ANESTHESIA AND SELF ADMINISTRATION OF PAIN MEDS BREATHING WELL TODAY Objective - Vital Signs/Intake and Output Vital Signs (last 24 hours): Temp Pulse Resp BP Pulse Ox 99.1 F 92 H 20 112/73 99 04/12/17 07:58 04/12/17 07:58 04/12/17 07:58 04/12/17 07:58 04/12/17 07:58 Intake and Output: 04/12/17 04/12/17 06:59 18:59 Intake Total 990 Output Total 550 Balance 440 - Medications Medications: Current Medications Acetaminophen (Tylenol 325mg Tab) 325 mg PO Q6 PRN PRN Reason: Pain, Mild (1-3) Acetaminophen (Tylenol 325mg Tab) 650 mg PO Q4 PRN PRN Reason: Pain, moderate (4-7) Last Admin: 04/11/17 19:16 Dose: 650 mg Aspirin (Ecotrin) 81 mg PO BID [facility] Last Admin: 04/12/17 09:42 Dose: 81 mg Docusate Sodium (Colace) 100 mg PO BID [facility] Last Admin: 04/12/17 09:41 Dose: 100 mg Ferrous Sulfate (Feosol) 325 mg PO DAILY [facility] Last Admin: 04/12/17 09:42 Dose: 325 mg Folic Acid (Folic Acid) 1 mg PO DAILY [facility] Last Admin: 04/12/17 09:42 Dose: 1 mg Hydromorphone HCl (Dilaudid 0.2 Mg/Ml Drycleaner) 0 mg IV PRN PRN; Protocol PRN Reason: Pain, moderate (4-7) Hydromorphone HCl (Dilaudid) 0.5 mg IVP Q15M PRN PRN Reason: Pain, moderate (4-7) Stop: 04/12/17 14:25 Hydromorphone HCl (Dilaudid) 0.5 mg IVP Q4 PRN PRN Reason: Pain, severe (8-10) Last Admin: 04/12/17 10:03 Dose: 0.5 mg Sodium Chloride (Sodium Chloride 0.9%) 1,000 mls @ 100 mls/hr IV .Q10H RASHAD Last Admin: 04/12/17 01:08 Dose: 100 mls/hr Ibuprofen (Motrin Tab) 400 mg PO Q6H PRN PRN Reason: Pain, Mild (1-3) Oxycodone/Acetaminophen (Percocet 5/325 Mg Tab) 2 tab PO Q4 PRN PRN Reason: Pain, moderate (4-7) Stop: 04/14/17 14:43 Last Admin: 04/12/17 00:23 Dose: 2 tab Oxycodone/Acetaminophen (Percocet 5/325 Mg Tab) 1 tab PO Q4 PRN PRN Reason: Pain, Mild (1-3) Stop: 04/13/17 17:39 Tramadol HCl (Ultram) 50 mg PO Q4 PRN PRN Reason: Pain, moderate (4-7) - Labs Labs: 04/12/17 05:00 04/12/17 05:00 PT 12.5 Seconds (9.8-13.1) 04/11/17 05:15 INR 1.1 (0.9-1.2) 04/11/17 05:15 APTT 29.9 Seconds (25.6-37.1) 04/10/17 16:20 - Respiratory Exam Respiratory Exam: Clear to Ausculation Bilateral - Cardiovascular Exam Cardiovascular Exam: REGULAR RHYTHM, +S1, +S2 - Additional Findings Additional findings: DISASSEMBLER PRODUCT NSR H/H 01/26/28.5 K+ 4.3 EKG 04/11/17 ST, R 103, POOR R WAVE PROGRESSION IN THE CHEST LEADS OR NOTES REVIEWED Assessment and Plan - Assessment and Plan (Free Text) Assessment: S/P LEFT TKR HYPERTENSION HISTORY Plan: CONTINUE TO OBSERVE ON 4N AMLODIPINE WILL BE HELD FOR THE TIME BEING AND BLOOD PRESSURE MONITORED THE PATIENT WAS CAUTIONED TO TRY TO KEEP PAIN MEDS MINIMAL POSSIBLE TO PREVENT HYPOTENSION AND SOB
--- NOTE | 2017-04-12 12:23 | OP ---
PROCEDURE DATE: 04/11/2017 PREOPERATIVE DIAGNOSES: 1. Severe tricompartmental osteoarthritis of the left knee with loose bodies. 2. Morbid obesity. POSTOPERATIVE DIAGNOSES: 1. Severe tricompartmental primary osteoarthritis of the left knee. 2. Multiple loose bodies. 3. Posterior capsular contracture. 4. Lateral patellar retinacular contracture. 5. Severe synovitis. PROCEDURES PERFORMED: 1. Left total knee replacement arthroplasty. 2. Posterior capsular release. 3. Lateral patellar retinacular release. 4. Arthrotomy, excision of loose bodies. 5. Arthrotomy, synovectomy, anterior and posterior. 6. Computer navigation. SURGEON: Mk Leon MD WINEMAKER: FORTINO King, certified registered nursing employment assistant. It should be noted that nursing employment assistant, Kellie Cotto, was essential to the completion of this operative exercise. SECOND OIL FIELD TESTER: TYPE OF ANESTHESIA: Spinal and general anesthesia. COMPLICATIONS: None. DRAINS: One Hemovac drain. OPERATIVE INDICATIONS: Kierra Henderson is a morbidly obese female, who has been having severe difficulty with both knees and inability to ambulate. The patient can no longer withstand the discomfort. The patient demands knee replacement arthroplasty. Medical clearance was obtained. Preoperative transfusion was accomplished. Pros, cons, risks and benefits of total knee replacement arthroplasty were discussed. Possibility of mechanical failure, infection, thromboembolic disease, secondary or tertiary surgery was discussed. The patient wished the surgery to be accomplished. OPERATIVE PROCEDURE: After having obtained informed consent in the above fashion, after having identified side, site and procedure and pause/time-out, after the satisfactory induction of the anesthetic, the patient identified as Kierra Henderson in the supine position with all bony prominences well padded, the left lower extremity was prepped and free draped in the usual fashion for extremity surgery. The tourniquet had been applied, but was not yet inflated. After exsanguinating the limb using a 6-inch Esmarch bandage, the tourniquet which had been applied was inflated to 350 mmHg. A 7-inch straight midline approach was made to the knee. The skin incision was carried down through the skin and subcutaneous tissue. Dissection was carried around posteromedially to the direct head of the semimembranosus tendon. The tibia was dislocated anteriorly and the initial osteotomy of the arthroplasty was accomplished on the tibial side. Anterior and posterior cruciate ligaments were excised. Medial and lateral meniscectomies were accomplished. This having been accomplished, a portion of the iliotibial band was released. The anterior tibial strut was placed. The offset was measured. A sensor was placed as was the accelerometer. Varus-valgus was set to 0 degrees varus-valgus and 3 degrees posterior slope. The offset had been corrected to 3.5 degrees of posterior slope. The initial osteotomy was 1 mm below the tibial depression. Osteotomy was accomplished. The proximal tibia was prepared with guidance to rotation being the lateral aspect of the tibial condyle, mid malleolar axis, medial third of the tibial tuberosity. The proximal tibia was prepared and punched. Using a curved 1/2-inch osteotome, the notch osteophytes and border osteophytes were removed. The pin was placed above the intercondylar notch. The distal cutting guide was placed along the epicondylar axis. Registration was to a #5. The accelerometer and the sensor were placed. The distal cut was set to 0 degrees varus-valgus, 0.5 degrees of flexion. The distal cutting guide was placed to a depth of 9 mm. The distal cut was accomplished, sizing to a #5 femoral component along the epicondylar axis. The 4-in-1 block was affixed. Anterior and posterior osteotomies were accomplished as well as chamfer cuts. The lamina boy's adviser was placed and a careful but thorough partial anterior and posterior synovectomy was accomplished. There was evidence of severe synovitis and posterior capsular contracture. . This having been accomplished, the wound was thoroughly irrigated. The femur was trialed and the tibia was found to be excellent, 20 mm polyethylene. The femoral chamfer was accomplished. Attention was turned to the patella. A lateral patellar retinacular release was accomplished from inside out. Patellar girth was found to be approximately 30 mm. Freehand patellar osteotomy was accomplished for #2 patellar component. The #2 patellar component was applied. The femur, tibia and patella were prepared. Trialing having been accomplished and found to be excellent patellofemoral balance and flexion-extension balance. The #5 cemented femoral component was applied. The #4 cemented tibial tray, 20 mm polyethylene, was inserted, the screw was affixed, and #2 patella was inserted. Arthrotomy and synovectomy had been accomplished. Arthrotomy and excision of multiple loose bodies had been accomplished. The wound was thoroughly irrigated. The tourniquet was deflated and hemostasis controlled with the Aquamantys. Closure of the arthrotomy was with interrupted Vicryl and #2 Quill, followed by 0 Quill and Vicryl, followed by vinicio over an 8-inch suction Hemovac drain. [place] Silverman compression dressing and knee immobilizer were applied. Mk Leon MD
--- NOTE | 2017-04-12 14:30 | CP.PCM.PN ---
Subjective - Date & Time of Evaluation Date of Evaluation: 04/12/17 Time of Evaluation: 09:30 - Subjective Subjective: Patient seen and examined bedside. Complaining of pain to left knee.Hemovac in place with sero sanguinous drainage. With episode of hypotension , tachycardia overnight and SOB which responded to IVF, O2 and lasix Tmax 99.8 WBC 10.8 Hgb 9.5 BUN/ Cr 18/1.4 Objective - Vital Signs/Intake and Output Vital Signs (last 24 hours): Temp Pulse Resp BP Pulse Ox 98.8 F 89 18 109/69 96 04/12/17 12:00 04/12/17 12:00 04/12/17 12:00 04/12/17 12:00 04/12/17 12:00 Intake and Output: 04/12/17 04/12/17 06:59 18:59 Intake Total 990 Output Total 550 Balance 440 - Medications Medications: Current Medications Acetaminophen (Tylenol 325mg Tab) 325 mg PO Q6 PRN PRN Reason: Pain, Mild (1-3) Acetaminophen (Tylenol 325mg Tab) 650 mg PO Q4 PRN PRN Reason: Pain, moderate (4-7) Last Admin: 04/11/17 19:16 Dose: 650 mg Aspirin (Ecotrin) 81 mg PO BID [facility] Last Admin: 04/12/17 09:42 Dose: 81 mg Docusate Sodium (Colace) 100 mg PO BID [facility] Last Admin: 04/12/17 09:41 Dose: 100 mg Ferrous Sulfate (Feosol) 325 mg PO DAILY [facility] Last Admin: 04/12/17 09:42 Dose: 325 mg Folic Acid (Folic Acid) 1 mg PO DAILY [facility] Last Admin: 04/12/17 09:42 Dose: 1 mg Hydromorphone HCl (Dilaudid 0.2 Mg/Ml Education Teacher) 0 mg IV PRN PRN; Protocol PRN Reason: Pain, moderate (4-7) Hydromorphone HCl (Dilaudid) 0.5 mg IVP Q4 PRN PRN Reason: Pain, severe (8-10) Last Admin: 04/12/17 10:03 Dose: 0.5 mg Sodium Chloride (Sodium Chloride 0.9%) 1,000 mls @ 100 mls/hr IV .Q10H [facility] Last Admin: 04/12/17 11:42 Dose: 100 mls/hr Ibuprofen (Motrin Tab) 400 mg PO Q6H PRN PRN Reason: Pain, Mild (1-3) Oxycodone/Acetaminophen (Percocet 5/325 Mg Tab) 2 tab PO Q4 PRN PRN Reason: Pain, moderate (4-7) Stop: 04/14/17 14:43 Last Admin: 04/12/17 00:23 Dose: 2 tab Oxycodone/Acetaminophen (Percocet 5/325 Mg Tab) 1 tab PO Q4 PRN PRN Reason: Pain, Mild (1-3) Stop: 04/13/17 17:39 Tramadol HCl (Ultram) 50 mg PO Q4 PRN PRN Reason: Pain, moderate (4-7) - Labs Labs: 04/12/17 05:00 04/12/17 05:00 PT 12.5 Seconds (9.8-13.1) 04/11/17 05:15 INR 1.1 (0.9-1.2) 04/11/17 05:15 APTT 29.9 Seconds (25.6-37.1) 04/10/17 16:20 - Constitutional Appears: Non-toxic, No Acute Distress, Other (overweight) - Head Exam Head Exam: ATRAUMATIC, NORMOCEPHALIC - Eye Exam Eye Exam: EOMI, Normal appearance, PERRL Pupil Exam: NORMAL ACCOMODATION - ENT Exam ENT Exam: Mucous Membranes Moist, Normal Exam - Neck Exam Neck Exam: Full ROM, Normal Inspection - Respiratory Exam Respiratory Exam: Clear to Ausculation Bilateral, NORMAL BREATHING PATTERN. absent: Rhonchi, Wheezes, Respiratory Distress - Cardiovascular Exam Cardiovascular Exam: REGULAR RHYTHM, RRR, +S1, +S2. absent: JVD - GI/Abdominal Exam GI & Abdominal Exam: Soft, Normal Bowel Sounds. absent: Distended, Guarding, Tenderness, Rebound - Rectal Exam Rectal Exam: Deferred - Extremities Exam Extremities Exam: absent: Calf Tenderness, Pedal Edema Additional comments: left knee dressing in place hemovac present with serosanguinous drainage - Back Exam Back Exam: NORMAL INSPECTION - Neurological Exam Neurological Exam: Alert, Awake, CN II-XII Intact, Oriented x3 - Psychiatric Exam Psychiatric exam: Normal Affect - Skin Skin Exam: Dry, Normal Color, Warm Assessment and Plan (1) Obesity (BMI 35.0-39.9 without comorbidity) Status: Acute - Assessment and Plan (Free Text) Assessment: 77 y/o lady with hx of OA, RA, HTN, presented in the ED because of severe left knee pain. Ortho consulted. CT of the knee showed severe OA.patient taken to OR and underwent left TKR She was noted to be anemic and was transfused 2 unit PRBxc pre and 3 unit PRBC during surgery Post op started on SUPERVISOR FLOOR ASSEMBLY pump for pain management. She became hypotensive and tachycardic overnight so SUPERVISOR FLOOR ASSEMBLY was stopped so IVF was started with good response. patient transferred to telemetry for close monitoring due to dyspnea probably secondary to volume overload . Lasix was given with good response. Patient at present hemodynamically stable, Tmax99.8 , complains of pain to left knee . Hemovac in place Participating with PT . 1.Primary osteoarthritis of left knee Chronic Ortho consulted - DR Leon s/p Left TKR Discontinued SUPERVISOR FLOOR ASSEMBLY pump due to hypotension and started Tramadol and percoset PRN Given ancef x 3 doses prophylactically continue stool softener Hemovac still present with sero sanguinous output PT/OT consult appreciated . Referred patient for DIANNE DVT proph with ASa 81 mg po BID as per ortho recommendations Incentive spirometry 2.Post op transient hypotension most likely secondary to dehydration and narcotics Given IVF 3. Dyspnea Most likely secondary to fluid overload patient had received total 5 unit PRBC and received 1 L NS after evaluated for hypotension responded well to lasix IV Continue gentle hydration and O2 via NC CXR showed no active disease , nor congestion 4. Anemia, chronic anemia on aute blood loss anemia Hgb 8 preop received total 5 unit PRBC yesterday Hgb 9.5 today 4. Rheumatoid arthritis Chronic 5. HTN (hypertension) Chronic d/c nervasc and HCTZ due to hypotension 6. DVT prophylaxis Acute ASA 81 mg bid 7. Obesity BMI 37 8.BLAKE on CKD stage III patient was admitted with baseline Cr 1.4 unclear baselin Continue monitoring and gentle hydration
[2017-04-13] MEDS: Oxycodone/Acetaminophen 5/325 mg Tab PO PRN (00:46)
[2017-04-13 06:00] LABS: HEMATOCRIT 24.5 % (34.0-47.0); MEAN CELL VOLUME 90.5 fl (81.0-99.0); MEAN CORPUSCULAR HEMOGLOBIN 29.7 pg (27.0-31.0); MEAN CORPUSCULAR HGB CONC 32.8 g/dL (33.0-37.0); WHITE BLOOD COUNT 8.7 K/uL (4.8-10.8)
[2017-04-13 07:25] VITALS: RESP 18
[2017-04-13] MEDS ORDERED: Pantoprazole 40 mg EC Tab PO SCH (09:00)
--- NOTE | 2017-04-13 10:25 | CP.PCM.PN ---
Subjective - Date & Time of Evaluation Date of Evaluation: 04/13/17 Time of Evaluation: 10:25 - Subjective Subjective: Patient states she is constipated. She says she is constipated frequently at home and takes stool softeners and drinks a lot of water, but right now she is very uncomfortable and has poor appetite. Requests enema. Denies CP// Dizziness. pain is still severe, but better today. Objective - Vital Signs/Intake and Output Vital Signs (last 24 hours): Temp Pulse Resp BP Pulse Ox 98.8 F 91 H 18 117/67 99 04/13/17 07:24 04/13/17 07:24 04/13/17 07:24 04/13/17 07:24 04/13/17 07:24 Intake and Output: 04/13/17 04/13/17 06:59 18:59 Intake Total 2440 Output Total 645 Balance 1795 - Medications Medications: Current Medications Acetaminophen (Tylenol 325mg Tab) 325 mg PO Q6 PRN PRN Reason: Pain, Mild (1-3) Acetaminophen (Tylenol 325mg Tab) 650 mg PO Q4 PRN PRN Reason: Pain, moderate (4-7) Last Admin: 04/11/17 19:16 Dose: 650 mg Acetaminophen (Tylenol 325mg Tab) 650 mg PO Q4 PRN PRN Reason: Fever >100.4 F Last Admin: 04/12/17 23:03 Dose: 650 mg Aspirin (Ecotrin) 81 mg PO BID [facility] Last Admin: 04/13/17 08:53 Dose: 81 mg Docusate Sodium (Colace) 100 mg PO BID [facility] Last Admin: 04/13/17 08:45 Dose: 100 mg Ferrous Sulfate (Feosol) 325 mg PO DAILY [facility] Last Admin: 04/13/17 08:55 Dose: 325 mg Folic Acid (Folic Acid) 1 mg PO DAILY [facility] Last Admin: 04/13/17 08:54 Dose: 1 mg Hydromorphone HCl (Dilaudid) 0.5 mg IVP Q4 PRN PRN Reason: Pain, severe (8-10) Last Admin: 04/13/17 08:52 Dose: 0.5 mg Sodium Chloride (Sodium Chloride 0.9%) 1,000 mls @ 100 mls/hr IV .Q10H [facility] Last Admin: 04/12/17 21:38 Dose: 100 mls/hr Ibuprofen (Motrin Tab) 400 mg PO Q6H PRN PRN Reason: Pain, Mild (1-3) Ketorolac Tromethamine (Toradol) 30 mg IVP ONCE ONE Stop: 04/13/17 10:25 Oxycodone/Acetaminophen (Percocet 5/325 Mg Tab) 2 tab PO Q4 PRN PRN Reason: Pain, moderate (4-7) Stop: 04/14/17 14:43 Last Admin: 04/13/17 00:46 Dose: 2 tab Oxycodone/Acetaminophen (Percocet 5/325 Mg Tab) 1 tab PO Q4 PRN PRN Reason: Pain, Mild (1-3) Stop: 04/13/17 17:39 Pantoprazole Sodium (Protonix Ec Tab) 40 mg PO DAILY [facility] Last Admin: 04/13/17 08:54 Dose: 40 mg Tramadol HCl (Ultram) 50 mg PO Q4 PRN PRN Reason: Pain, moderate (4-7) - Labs Labs: 04/13/17 05:15 04/12/17 05:00 PT 12.5 Seconds (9.8-13.1) 04/11/17 05:15 INR 1.1 (0.9-1.2) 04/11/17 05:15 APTT 29.9 Seconds (25.6-37.1) 04/10/17 16:20 - Extremities Exam Additional comments: LLE: dressing changed and hemovac pulled. Noted swelling to left knee, scant sang drainage on the dressing. +ROM ankle/toes, sensation intact, +pulses, calves soft NT neg homans. No erythema. Assessment and Plan (1) Primary osteoarthritis of left knee Assessment & Plan: POD#2 s/p left TKR -f/u labs, hemodynamically stable now and with f/u during PT -d/c planning back to [facility] per patient -VTE proph -OOB -d/w Dr. Leon, agrees with above, events noted Status: Chronic
--- NOTE | 2017-04-13 11:25 | CP.PCM.PN ---
Subjective - Date & Time of Evaluation Date of Evaluation: 04/13/17 Time of Evaluation: 11:15 - Subjective Subjective: NO CHEST PAIN OR SOB Objective - Vital Signs/Intake and Output Vital Signs (last 24 hours): Temp Pulse Resp BP Pulse Ox 98.8 F 91 H 18 117/67 99 04/13/17 07:24 04/13/17 07:24 04/13/17 07:24 04/13/17 07:24 04/13/17 07:24 Intake and Output: 04/13/17 04/13/17 06:59 18:59 Intake Total 2440 Output Total 645 Balance 1795 - Medications Medications: Current Medications Acetaminophen (Tylenol 325mg Tab) 325 mg PO Q6 PRN PRN Reason: Pain, Mild (1-3) Acetaminophen (Tylenol 325mg Tab) 650 mg PO Q4 PRN PRN Reason: Pain, moderate (4-7) Last Admin: 04/11/17 19:16 Dose: 650 mg Acetaminophen (Tylenol 325mg Tab) 650 mg PO Q4 PRN PRN Reason: Fever >100.4 F Last Admin: 04/12/17 23:03 Dose: 650 mg Aspirin (Ecotrin) 81 mg PO BID [facility] Last Admin: 04/13/17 08:53 Dose: 81 mg Docusate Sodium (Colace) 100 mg PO BID [facility] Last Admin: 04/13/17 08:45 Dose: 100 mg Ferrous Sulfate (Feosol) 325 mg PO DAILY [facility] Last Admin: 04/13/17 08:55 Dose: 325 mg Folic Acid (Folic Acid) 1 mg PO DAILY [facility] Last Admin: 04/13/17 08:54 Dose: 1 mg Hydromorphone HCl (Dilaudid) 0.5 mg IVP Q4 PRN PRN Reason: Pain, severe (8-10) Last Admin: 04/13/17 08:52 Dose: 0.5 mg Sodium Chloride (Sodium Chloride 0.9%) 1,000 mls @ 100 mls/hr IV .Q10H [facility] Last Admin: 04/12/17 21:38 Dose: 100 mls/hr Ibuprofen (Motrin Tab) 400 mg PO Q6H PRN PRN Reason: Pain, Mild (1-3) Oxycodone/Acetaminophen (Percocet 5/325 Mg Tab) 2 tab PO Q4 PRN PRN Reason: Pain, moderate (4-7) Stop: 04/14/17 14:43 Last Admin: 04/13/17 00:46 Dose: 2 tab Oxycodone/Acetaminophen (Percocet 5/325 Mg Tab) 1 tab PO Q4 PRN PRN Reason: Pain, Mild (1-3) Stop: 04/13/17 17:39 Pantoprazole Sodium (Protonix Ec Tab) 40 mg PO DAILY [facility] Last Admin: 04/13/17 08:54 Dose: 40 mg Tramadol HCl (Ultram) 50 mg PO Q4 PRN PRN Reason: Pain, moderate (4-7) - Labs Labs: 04/13/17 05:15 04/12/17 05:00 PT 12.5 Seconds (9.8-13.1) 04/11/17 05:15 INR 1.1 (0.9-1.2) 04/11/17 05:15 APTT 29.9 Seconds (25.6-37.1) 04/10/17 16:20 - Respiratory Exam Respiratory Exam: Clear to Ausculation Bilateral - Cardiovascular Exam Cardiovascular Exam: REGULAR RHYTHM, +S1, +S2 Assessment and Plan - Assessment and Plan (Free Text) Assessment: TOTAL LEFT KNEE REPLACEMENT HYPERTENSION HISTORY, BUT BLOOD PRESSURE HAS BEEN MOSTLY NORMAL TO LOW ON THIS ADMISSION ANEMIA Plan: CONTINUE TO HOLD AMLODIPINE AND OBSERVE BLOOD PRESSURE FOR PHYSICAL THERAPY
--- NOTE | 2017-04-13 12:31 | CP.PCM.DIS ---
Provider - Provider Date of Admission: 04/10/17 17:15 Attending physician: Wilian Melendrez MD Consults: Ortho : Dr Leon Cardio: Dr Chaudhary Time Spent in preparation of Discharge (in minutes): 30 Diagnosis - Discharge Diagnosis (1) Primary osteoarthritis of left knee Status: Chronic (2) Rheumatoid arthritis Status: Chronic (3) Status post total knee replacement, left Status: Acute (4) Anemia Status: Chronic (5) HTN (hypertension) Status: Chronic (6) DVT prophylaxis Status: Acute Hospital Course - Lab Results Lab Results: Most Recent Lab Values WBC 8.7 K/uL (4.8-10.8) 04/13/17 05:15 RBC 2.71 Mil/uL (3.80-5.20) L 04/13/17 05:15 Hgb 8.1 g/dL (12.0-16.0) L 04/13/17 05:15 Hct 24.5 % (34.0-47.0) L 04/13/17 05:15 MCV 90.5 fl (81.0-99.0) 04/13/17 05:15 MCH 29.7 pg (27.0-31.0) 04/13/17 05:15 MCHC 32.8 g/dL (33.0-37.0) L 04/13/17 05:15 RDW 17.0 % (11.5-14.5) H 04/13/17 05:15 Plt Count 111 K/uL (130-400) L D 04/13/17 05:15 MPV 7.7 fl (7.2-11.7) 04/10/17 16:20 Neut % (Auto) 61.9 % (50.0-75.0) 04/10/17 16:20 Lymph % (Auto) 22.1 % (20.0-40.0) 04/10/17 16:20 [place] % (Auto) 13.1 % (0.0-10.0) H 04/10/17 16:20 Eos % (Auto) 2.2 % (0.0-4.0) 04/10/17 16:20 Baso % (Auto) 0.7 % (0.0-2.0) 04/10/17 16:20 Neut # 3.3 K/uL (1.8-7.0) 04/10/17 16:20 Lymph # 1.2 K/uL (1.0-4.3) 04/10/17 16:20 [place] # 0.7 K/uL (0.0-0.8) 04/10/17 16:20 Eos # 0.1 K/uL (0.0-0.7) 04/10/17 16:20 Baso # 0.0 K/uL (0.0-0.2) 04/10/17 16:20 PT 12.5 Seconds (9.8-13.1) 04/11/17 05:15 INR 1.1 (0.9-1.2) 04/11/17 05:15 APTT 29.9 Seconds (25.6-37.1) 04/10/17 16:20 Sodium 135 mmol/l (132-148) 04/12/17 05:00 Potassium 4.3 MMOL/L (3.6-5.0) 04/12/17 05:00 Chloride 105 mmol/L (98-107) 04/12/17 05:00 Carbon Dioxide 21 mmol/L (22-30) L 04/12/17 05:00 Anion Gap 13 (10-20) 04/12/17 05:00 BUN 18 mg/dl (7-17) H 04/12/17 05:00 Creatinine 1.4 mg/dl (0.7-1.2) H 04/12/17 05:00 Est GFR ( Amer) 44 04/12/17 05:00 Est GFR (Non-Af Amer) 36 04/12/17 05:00 POC Glucose (mg/dL) 137 mg/dL (65-110) H 04/11/17 19:20 Random Glucose 135 mg/dL (65-105) H 04/12/17 05:00 Calcium 8.2 mg/dL (8.4-10.2) L 04/12/17 05:00 Total Bilirubin 0.3 mg/dl (0.2-1.3) 04/10/17 16:20 AST 18 U/L (14-36) 04/10/17 16:20 ALT 31 U/L (9-52) 04/10/17 16:20 Alkaline Phosphatase 74 U/L (38-126) 04/10/17 16:20 Total Protein 8.0 G/DL (6.3-8.2) 04/10/17 16:20 Albumin 3.9 g/dL (3.5-5.0) 04/10/17 16:20 Globulin 4.1 gm/dL (2.2-3.9) H 04/10/17 16:20 Albumin/Globulin Ratio 1.0 (1.0-2.1) 04/10/17 16:20 Urine Color Straw (YELLOW) 04/11/17 08:13 Urine Clarity Clear (Clear) 04/11/17 08:13 Urine pH 7.0 (5.0-8.0) 04/11/17 08:13 Ur Specific [place] 1.008 (1.003-1.030) 04/11/17 08:13 Urine Protein Negative mg/dL (NEGATIVE) 04/11/17 08:13 Urine Glucose (UA) Neg mg/dL (Normal) 04/11/17 08:13 Urine Ketones Negative mg/dL (NEGATIVE) 04/11/17 08:13 Urine Blood Negative (NEGATIVE) 04/11/17 08:13 Urine Nitrate Negative (NEGATIVE) 04/11/17 08:13 Urine Bilirubin Negative (NEGATIVE) 04/11/17 08:13 Urine Urobilinogen 0.2-1.0 mg/dL (0.2-1.0) 04/11/17 08:13 Ur Leukocyte Esterase Small Shaila/uL (Negative) 04/11/17 08:13 Urine RBC (Auto) 1 /hpf (0-3) 04/11/17 08:13 Urine Microscopic WBC 1 /hpf (0-5) 04/11/17 08:13 Ur Squamous Epith Cells 1 /hpf (0-5) 04/11/17 08:13 Urine Bacteria Rare (<OCC) 04/11/17 08:13 Blood Type A POSITIVE 04/10/17 16:20 Blood Type Confirm A POSITIVE 04/10/17 18:51 Antibody Screen Negative 04/10/17 16:20 Crossmatch See Detail 04/10/17 16:20 BBK History Checked No verified bt 04/10/17 16:20 - Hospital Course Hospital Course: 77 y/o lady with hx of OA, RA, HTN, presented in the ED because of severe left knee pain. Ortho consulted. CT of the knee showed severe OA. Patient taken to OR and underwent left TKR She was noted to be anemic on admission and was transfused 2 units PRBC preop and 3 unit PRBC during surgery Post op started on CELERY CUTTER pump for pain management. She became hypotensive and tachycardic overnight so CELERY CUTTER was stopped so IVF was started with good response. Patient transferred to telemetry for close monitoring due to dyspnea probably secondary to volume overload . Lasix was given with good response. Patient at present hemodynamically stable, complains of pain to left knee however controlled with pain meds. . Hemovac removed Participating with PT . Will d/c pt to [facility] for further Rehab. 1.Primary osteoarthritis of left knee Chronic Ortho consulted - DR Leon s/p Left TKR Discontinued CELERY CUTTER pump due to hypotension and started Tramadol and percoCet PRN Given ancef x 3 doses prophylactically continue stool softener Hemovac d/c PT/OT consult appreciated . Referred patient for [facility] DVT proph with ASa 81 mg po BID as per ortho recommendations Incentive spirometry 2.Post op transient hypotension most likely secondary to dehydration and narcotics Given IVF 3. Dyspnea Most likely secondary to fluid overload patient had received total 5 unit PRBC and received 1 L NS after evaluated for hypotension responded well to lasix IV Continue gentle hydration and O2 via NC CXR showed no active disease , nor congestion 4. Anemia, chronic anemia with acute blood loss anemia Hgb 8 preop received total 5 unit PRBC 4. Rheumatoid arthritis Chronic cont pain mgt 5. HTN (hypertension) Chronic d/c nOrvasc and HCTZ due to hypotension - restart in [facility] 6. DVT prophylaxis Acute ASA 81 mg bid 7. Obesity BMI 37 8.BLAKE on CKD stage III patient was admitted with baseline Cr 1.4 unclear baseline gentle hydration Discharge Exam - Head Exam Head Exam: ATRAUMATIC, NORMAL INSPECTION, NORMOCEPHALIC - Eye Exam Eye Exam: EOMI, Normal appearance Pupil Exam: NORMAL ACCOMODATION - ENT Exam ENT Exam: Mucous Membranes Moist, Normal External Ear Exam - Neck Exam Neck exam: Full Rom - Respiratory Exam Respiratory Exam: NORMAL BREATHING PATTERN. absent: Respiratory Distress - Cardiovascular Exam Cardiovascular Exam: REGULAR RHYTHM, +S1, +S2 - GI/Abdominal Exam GI & Abdominal Exam: Normal Bowel Sounds, Soft. absent: Tenderness - Extremities Exam Extremities exam: normal capillary refill, pedal pulses present Additional comments: no calf tenderness, left knee with dressing - Back Exam Back exam: absent: CVA tenderness (L), CVA tenderness (R) - Neurological Exam Neurological exam: Alert, CN II-XII Intact, Oriented x3, Reflexes Normal - Psychiatric Exam Psychiatric exam: Normal Affect, Normal Mood - Skin Skin Exam: Dry, Normal Color, Warm Discharge Plan - Follow Up Plan Condition: GOOD Disposition: TRANSF TO SNF Instructions: Knee Replacement (DC) Additional Instructions: ff up with Dr Leon next wk ff up with PMOlivia crowe
[2017-04-13 15:07] VITALS: BP 117/76; PULSE 88; TEMP 99; O2SAT 98
== END 2017-04-13 16:30 | DRG 470 ==
LOC: H.ER 14:58 → H.ERHOLD 17:15 → H.MEDSURG1 18:20 → H.TEL 04-11 23:30 → H.MEDSURG1 04-12 22:06
PROVIDERS: ADMIT Internal Medicine; ATTEND Internal Medicine
PROC: 30233N1 Transfusion of Nonautologous Red Blood Cells into Peripheral Vein, Percutaneous Approach (ICD-10-PCS; 2017-04-10)
PROC: 3E0T3BZ Introduction of Anesthetic Agent into Peripheral Nerves and Plexi, Percutaneous Approach (ICD-10-PCS; 2017-04-11)
PROC: 0SRD0J9 Replacement of Left Knee Joint with Synthetic Substitute, Cemented, Open Approach (ICD-10-PCS; principal; 2017-04-11 13:45)
PROC: 0SCD0ZZ Extirpation of Matter from Left Knee Joint, Open Approach (ICD-10-PCS; 2017-04-11 13:45)
PROC: 0SBD0ZZ Excision of Left Knee Joint, Open Approach (ICD-10-PCS; 2017-04-11 13:45)
DX: M17.12 Unilateral primary osteoarthritis, left knee (principal); N17.9 Acute kidney failure, unspecified; R06.00 Dyspnea, unspecified; E86.0 Dehydration; E87.70 Fluid overload, unspecified; D62 Acute posthemorrhagic anemia; E66.01 Morbid (severe) obesity due to excess calories; F32.9 Major depressive disorder, single episode, unspecified; I12.9 Hypertensive chronic kidney disease with stage 1 through stage 4 chronic kidney disease, or unspecified chronic kidney disease; K59.00 Constipation, unspecified; M06.9 Rheumatoid arthritis, unspecified; M23.42 Loose body in knee, left knee; M65.9 Synovitis and tenosynovitis, unspecified; N18.3 Chronic kidney disease, stage 3 (moderate); Z68.37 Body mass index [BMI] 37.0-37.9, adult; Z79.82 Long term (current) use of aspirin; Z79.899 Other long term (current) drug therapy; Z90.710 Acquired absence of both cervix and uterus; I95.81 Postprocedural hypotension